=== PATIENT | male | born 1975 | race Caucasian/White ===

== ENCOUNTER 2020-11-07 15:23 | Emergency (ER) | payer OTHER ==
[~2020-11-07] VITALS: Ht 180.3 cm; Wt 121.3 kg
--- NOTE | 2020-11-07 15:54 | NUR ---
MADE SEVERAL ATTEMPTS TO TRIAGE PATIENT, IN BATHROOM THREE TIMES.
[2020-11-07 16:06] VITALS: BP 154/88
[2020-11-07 16:29] LABS: BASOPHILS # (AUTO) 0.1 X10'3 (0-0.2); BASOPHILS % (AUTO) 0.5 % (0-1); EOSINOPHILS % (AUTO) 0.1 % (0-6); HEMATOCRIT 44.4 % (42.0-52.0); LYMPHOCYTES # (AUTO) 2.4 X10'3 (1.1-4.8); LYMPHOCYTES % (AUTO) 14.1 % (21-51); MEAN CORPUSCULAR HGB CONC 33.8 g/dL (33.0-36.5); MEAN CORPUSCULAR VOLUME 91.6 FL (78-98); MEAN PLATELET VOLUME 8.2 FL (7.4-10.4); MONOCYTES # (AUTO) 0.5 X10'3 (0-0.9); MONOCYTES % (AUTO) 2.9 % (2-12); NEUTROPHILS # (AUTO) 13.9 X10'3 (1.8-7.7); NEUTROPHILS % (AUTO) 82.4 % (42-75); PLATELET COUNT 381 X10'3 (140-440); RED BLOOD COUNT 4.85 X10'6 (4.70-6.10); RED CELL DISTRIBUTION WIDTH 13.5 % (11.5-14.5); WHITE BLOOD COUNT 16.9 X10'3 (4.5-11.0)
[2020-11-07 16:44] LABS: ALANINE AMINOTRANSFERASE 40 U/L (12-78); ALBUMIN 3.8 G/DL (3.4-5.0); ALKALINE PHOSPHATASE 127 IU/L (46-116); ANION GAP 11 (8-16); ASPARTATE AMINO TRANSFERASE 21 U/L (10-37); BILIRUBIN,TOTAL 0.7 MG/DL (0.1-1.0); BLOOD UREA NITROGEN 6 MG/DL (7-18); BUN/CREATININE RATIO 8.3 (5.4-32.0); CHLORIDE 100 MMOL/L (99-107); CREATININE 0.72 MG/DL (0.60-1.10); GLUCOSE 365 MG/DL (70-104); POTASSIUM 3.6 MMOL/L (3.5-5.1); SODIUM 140 MMOL/L (135-145); TOTAL CARBON DIOXIDE 29.5 MMOL/L (24-32); TOTAL PROTEIN 7.8 G/DL (6.4-8.2); eGFR > 90 ML/MIN
== END 2020-11-07 17:21 | disposition left against medical advice (07) ==
LOC: ER 15:25
DX: R07.89 Other chest pain (principal); Z53.21 Procedure and treatment not carried out due to patient leaving prior to being seen by health care provider
CPT/HCPCS: 36415; 71045; 80053; 82948; 83880; 84484; 85025; 93005

== ENCOUNTER 2020-11-09 02:58 | Emergency (ER) | payer OTHER ==
[~2020-11-09] VITALS: Ht 180.3 cm; Wt 132.4 kg
[2020-11-09] MEDS ORDERED: ondansetron/PF 4mg/2ml inj IV ONE (03:20)
[2020-11-09] MEDS ORDERED: normal saline 1000ML IV soln IVB ONE ×2 (03:20→05:20)
[2020-11-09 05:08] LABS: ALANINE AMINOTRANSFERASE 51 U/L (12-78); ALBUMIN 3.9 G/DL (3.4-5.0); ALKALINE PHOSPHATASE 117 IU/L (46-116); ANION GAP 10 (8-16); ASPARTATE AMINO TRANSFERASE 60 U/L (10-37); BASOPHILS # (AUTO) 0.1 X10'3 (0-0.2); BASOPHILS % (AUTO) 0.3 % (0-1); BILIRUBIN,TOTAL 0.8 MG/DL (0.1-1.0); BLOOD UREA NITROGEN 9 MG/DL (7-18); BUN/CREATININE RATIO 10.5 (5.4-32.0); CHLORIDE 92 MMOL/L (99-107); CREATININE 0.86 MG/DL (0.60-1.10); EOSINOPHILS % (AUTO) 0.1 % (0-6); ETHANOL < 0.010 GM/DL (0.0-0.010); GLUCOSE 265 MG/DL (70-104); HEMATOCRIT 45.1 % (42.0-52.0); HEMOGLOBIN 15.4 g/dl (14.0-17.9); LIPASE 255 U/L (73-393); LYMPHOCYTES # (AUTO) 3.4 X10'3 (1.1-4.8); LYMPHOCYTES % (AUTO) 17.3 % (21-51); MAGNESIUM 1.8 MG/DL (1.5-2.4); MEAN CORPUSCULAR VOLUME 90.9 FL (78-98); MEAN PLATELET VOLUME 8.8 FL (7.4-10.4); MONOCYTES # (AUTO) 1.2 X10'3 (0-0.9); NEUTROPHILS # (AUTO) 14.8 X10'3 (1.8-7.7); NEUTROPHILS % (AUTO) 76.3 % (42-75); PLATELET COUNT 389 X10'3 (140-440); POTASSIUM 3.3 MMOL/L (3.5-5.1); RED BLOOD COUNT 4.96 X10'6 (4.70-6.10); RED CELL DISTRIBUTION WIDTH 13.6 % (11.5-14.5); SODIUM 135 MMOL/L (135-145); TOTAL CARBON DIOXIDE 32.8 MMOL/L (24-32); WHITE BLOOD COUNT 19.4 X10'3 (4.5-11.0); eGFR > 90 ML/MIN
--- NOTE | 2020-11-09 05:30 | NUR ---
pt to ct
[2020-11-09] MEDS ORDERED: ONDA4TAB6 PO (06:06)
[2020-11-09] MEDS ORDERED: potassium Cl 10 mEq/100mL bag IV ONE (06:25)
--- NOTE | 2020-11-09 06:35 | NUR ---
Discussed pt's continuing nausea w/ edmd valladares; new order for Reglan and NS bolus received. Currently tx and dc.
[2020-11-09] MEDS ORDERED: metoclopramide 5 mg/ml inj IV ONE (06:55)
[2020-11-09] MEDS ORDERED: normal saline 1000ml 1,000 ML IV ONE (06:55)
[2020-11-09 08:03] VITALS: BP 164/92
== END 2020-11-09 09:02 | disposition home or self-care (01) ==
LOC: ER 02:58
DX: R11.2 Nausea with vomiting, unspecified (principal); R10.9 Unspecified abdominal pain; E87.6 Hypokalemia; I10 Essential (primary) hypertension; Z20.822 Contact with and (suspected) exposure to COVID-19
CPT/HCPCS: 36415; 71045; 74176; 80053; 80320; 83690; 83735; 85025; 87502; 87503; 87635; 96361; 96374; 96375; 99285; C9803; J2405; J2765; J3480; J7030

== ENCOUNTER 2022-11-28 16:54 | Inpatient (IN) | payer OTHER, MEDICAID ==
[~2022-11-28] VITALS: Ht 182.9 cm; Wt 127.0 kg
[~2022-11-28 16:54] MED LIST: ONDA4TAB6 PO
[2022-11-28 17:56] LABS: BASOPHILS % (AUTO) 0.3 % (0-1); EOSINOPHILS % (AUTO) 0.1 % (0-6); HEMATOCRIT 45.3 % (42.0-52.0); HEMOGLOBIN 15.3 g/dl (14.0-17.9); LYMPHOCYTES # (AUTO) 1.7 X10'3 (1.1-4.8); LYMPHOCYTES % (AUTO) 9.6 % (21-51); MEAN CORPUSCULAR HGB CONC 33.7 g/dL (33.0-36.5); MEAN PLATELET VOLUME 8.1 FL (7.4-10.4); MONOCYTES # (AUTO) 0.7 X10'3 (0-0.9); MONOCYTES % (AUTO) 3.9 % (2-12); NEUTROPHILS # (AUTO) 15.6 X10'3 (1.8-7.7); NEUTROPHILS % (AUTO) 86.1 % (42-75); PLATELET COUNT 381 X10'3 (140-440); RED BLOOD COUNT 5.09 X10'6 (4.70-6.10); RED CELL DISTRIBUTION WIDTH 13.1 % (11.5-14.5); WHITE BLOOD COUNT 18.1 X10'3 (4.5-11.0)
[2022-11-28 18:03] LABS: ALBUMIN 4.1 G/DL (3.4-5.0); ALKALINE PHOSPHATASE 93 IU/L (46-116); ANION GAP 15 (8-16); ASPARTATE AMINO TRANSFERASE 34 U/L (10-37); BILIRUBIN,TOTAL 0.7 MG/DL (0.1-1.0); BLOOD UREA NITROGEN 8 MG/DL (7-18); BUN/CREATININE RATIO 6.2 (10.0-20.0); CALCIUM 9.5 MG/DL (8.5-10.1); CHLORIDE 94 MMOL/L (99-107); CREATININE 1.29 MG/DL (0.60-1.10); GLUCOSE 175 MG/DL (70-104); LIPASE < 50 U/L (73-393); POTASSIUM 3.6 MMOL/L (3.5-5.1); SODIUM 134 MMOL/L (135-145); TOTAL CARBON DIOXIDE 24.7 MMOL/L (24-32); TOTAL PROTEIN 8.4 G/DL (6.4-8.2); eGFR 59 ML/MIN
[2022-11-28 18:38] LABS: ALANINE AMINOTRANSFERASE 50 U/L (12-78)
[2022-11-28] MEDS ORDERED: ondansetron/PF 4mg/2ml inj IV ONE ×2 (19:20→21:20)
[2022-11-28] MEDS ORDERED: normal saline 1000ML IV soln IVB ONE (19:20)
[2022-11-28] MEDS ORDERED: morphine 4 MG/ML inj SYRINge IV ONE (19:20)
--- NOTE | 2022-11-28 19:48 | NUR ---
ASSUMED CARE OF PT FROM BONNIE CALVERT, PT C/O N/V, ABD PAIN. MEDICATED PER ORDER, PT TO CT IN WHEELCHAIR
--- NOTE | 2022-11-28 20:01 | NUR ---
RECEIVING 1ST LITER OF NS, ABD PAIN DECREASED TO 5/10
--- NOTE | 2022-11-28 20:47 | NUR ---
2ND LITER NS INFUSING W/O, PT IS RESTING QUIETLY ON BED, WAITING FOR REEVALUATION
[2022-11-28] MEDS ORDERED: temazepam 15mg capsule PO PRN (21:00)
--- NOTE | 2022-11-28 21:19 | NUR ---
PT IS VOMITING, DR KOO AWARE, GAVE VERBAL ORDER FOR ZOFRAN 4MG IV, 1 LITER NS BOLUS
[2022-11-28] MEDS ORDERED: normal saline 1000ml 1,000 ML IV ONE (21:20)
[2022-11-28 21:38] LABS: CLARITY,URINE CLEAR (Clear); COLOR,URINE YELLOW (Yellow); GLUCOSE, URINE NEGATIVE (Neg); KETONES,URINE 40 mg/dl (Neg); LEUKOCYTE ESTERASE ,URINE NEGATIVE (Neg); NITRITES, URINE NEGATIVE (Neg); OCCULT BLOOD,URINE NEGATIVE (Neg); PROTEIN,URINE 30 mg/dl (Neg); UROBILINOGEN,URINE 0.2 E.U/dL (0.2-1.0)
[2022-11-28 21:49] LABS: UA COLLECTION TYPE CLN CATCH MIDSTREAM
[2022-11-28 21:51] LABS: RBC,URINE NONE SEEN /HPF (0-2)
[2022-11-28 21:52] LABS: BACTERIA,URINE FEW /HPF (Neg); SQUAMOUS EPITHELIAL CELL,UR FEW /LPF (FEW)
[2022-11-28 21:53] LABS: MUCUS STRANDS FEW /LPF (Neg)
--- NOTE | 2022-11-28 22:05 | NUR ---
PT CONTINUES TO VOMIT, DR KOO AWARE, GAVE VERBAL ORDER FOR REGLAN 10MG IV NOW X1
[2022-11-28] MEDS ORDERED: metoclopramide 5 mg/ml inj IV ONE (22:10)
[2022-11-28] MEDS ORDERED: piperacillin/tazo 4.5gm/100ml 100 ML IV ONE (23:10)
[2022-11-28] MEDS ORDERED: ondansetron/PF 4mg/2ml inj IV PRN (23:20)
[2022-11-28] MEDS ORDERED: acetaminophen 325mg tablet PO PRN ×2 (23:20)
[2022-11-28] MEDS ORDERED: HYDROcodone/acetaminophen 5mg/325mg tablet PO PRN (23:20)
[2022-11-28] MEDS ORDERED: magnesium hydroxide 30ml (MOM) UD suspension PO PRN (23:20)
[2022-11-28] MEDS ORDERED: morphine 2 MG/ML inj. syringe IV PRN (23:20)
[2022-11-28] MEDS ORDERED: mag hydrox/Alum hydrox/simeth 30ml oral suspension PO PRN (23:20)
[2022-11-28] MEDS ORDERED: metroNIDAZOLE-Flagyl 500mg/NS 100 ML IV ONE (23:28)
[2022-11-28] MEDS ORDERED: GLIM4TAB7 PO (23:32)
[2022-11-28] MEDS ORDERED: GABA600T13 PO (23:32)
[2022-11-28] MEDS ORDERED: ALLO100T PO (23:33)
[2022-11-28] MEDS ORDERED: LOSA-416 PO (23:33)
--- NOTE | 2022-11-28 23:34 | NUR ---
MED REC PARTIALLY COMPLETE. TO BRING 2 OTHER UNK MEDS TOMORROW
--- NOTE | 2022-11-29 00:02 | NUR ---
PT USES CPAP AT NIGHT FOR SLEEP APNEA, DR KILGORE AWARE. GAVE VERBAL ORDER FOR CPAP.
[2022-11-29] MEDS: morphine 2 MG/ML inj. syringe IV PRN ×2 (00:59→20:11)
[2022-11-29] MEDS: dextrose 5%-1/2 normal saline 1,000 ML IV SCH ×2 (02:13→09:20)
[2022-11-29] MEDS ORDERED: glucagon, human recombinant 1mg kit SUBCUT PRN (04:40)
[2022-11-29] MEDS ORDERED: DEXTROSE 15 GM of carb/4 tabs (each vial/BOTTLE has 4 tablets) PO PRN ×2 (04:40)
[2022-11-29] MEDS ORDERED: MESSAGE TO PHARMACY PO ONE (04:40)
[2022-11-29] MEDS ORDERED: dextrose 50%-water 50ml dispensing syringe IV PRN ×2 (04:40)
[2022-11-29] MEDS ORDERED: insulin Lispro (HumaLOG) vial - multi-dose SQ SCH (04:40)
[2022-11-29] MEDS ORDERED: piperacillin/tazo 4.5gm/100ml 100 ML IV ONE (08:00)
[2022-11-29] MEDS: docusate sod 100mg capsule PO SCH ×2 (08:00→20:00)
[2022-11-29] MEDS ORDERED: metroNIDAZOLE-Flagyl 500mg/NS 100 ML IV SCH (08:00)
[2022-11-29] MEDS: allopurinol 100mg tablet PO SCH (08:26)
[2022-11-29] MEDS: gabapentin 300mg capsule PO SCH ×2 (08:28→15:17)
[2022-11-29] MEDS: losartan 50mg tablet PO SCH (08:28)
[2022-11-29] MEDS: piperacillin/tazo 4.5gm/100ml 100 ML IV SCH ×2 (08:50→15:18)
--- NOTE | 2022-11-29 09:20 | NUR ---
PT UP IN BED USING RESTROOM BY HIMESLF WITH IV POLE.
--- NOTE | 2022-11-29 10:59 | NUR ---
Patient in room ED 1. I have received report from yoly CALVERT and had the opportunity to ask questions and awaiting patients arrival
[2022-11-29 12:13] VITALS: BP 143/78
[2022-11-29 12:30] LABS: BASOPHILS # (AUTO) 0.1 X10'3 (0-0.2); BASOPHILS % (AUTO) 0.5 % (0-1); EOSINOPHILS # (AUTO) 0.1 X10'3 (0-0.9); EOSINOPHILS % (AUTO) 0.4 % (0-6); HEMATOCRIT 41.3 % (42.0-52.0); HEMOGLOBIN 13.6 g/dl (14.0-17.9); LYMPHOCYTES # (AUTO) 3.1 X10'3 (1.1-4.8); LYMPHOCYTES % (AUTO) 20.9 % (21-51); MEAN CORPUSCULAR HEMOGLOBIN 30.1 PG (27.0-31.0); MEAN CORPUSCULAR HGB CONC 33.1 g/dL (33.0-36.5); MEAN PLATELET VOLUME 7.5 FL (7.4-10.4); MONOCYTES % (AUTO) 6.5 % (2-12); NEUTROPHILS # (AUTO) 10.5 X10'3 (1.8-7.7); NEUTROPHILS % (AUTO) 71.7 % (42-75); PLATELET COUNT 274 X10'3 (140-440); RED BLOOD COUNT 4.53 X10'6 (4.70-6.10); RED CELL DISTRIBUTION WIDTH 13.2 % (11.5-14.5); WHITE BLOOD COUNT 14.6 X10'3 (4.5-11.0)
[2022-11-29 12:44] LABS: ALBUMIN 3.3 G/DL (3.4-5.0); ANION GAP 7 (8-16); BLOOD UREA NITROGEN 7 MG/DL (7-18); BUN/CREATININE RATIO 7.4 (10.0-20.0); CALCIUM 8.3 MG/DL (8.5-10.1); CHLORIDE 103 MMOL/L (99-107); CREATININE 0.94 MG/DL (0.60-1.10); GLUCOSE 125 MG/DL (70-104); POTASSIUM 3.1 MMOL/L (3.5-5.1); SODIUM 138 MMOL/L (135-145); TOTAL CARBON DIOXIDE 28.4 MMOL/L (24-32); eGFR 86 ML/MIN
--- NOTE | 2022-11-29 13:30 | NUR ---
patient appears comfortable in room. BSS. No c/o pain. No BM as yet seen by Dr kim
[2022-11-29] MEDS: Potassium Cl inj 20 MEQ in normal saline 1000ml 990 ML IV SCH ×2 (13:52→20:10)
[2022-11-29] MEDS: HALLS - SOOTHE MENTHOL 1.8 MG cough drop LOZENGE MM PRN (15:24)
--- NOTE | 2022-11-29 16:18 | NUR ---
Patient refuses our bipap. (He hasn't worn his home unit for months)
[2022-11-29] MEDS: HYDROcodone/acetaminophen 10/325mg tab PO PRN (16:43)
--- NOTE | 2022-11-29 17:58 | NUR ---
Cutler given for pain x1 with good rsult. patient up to shower.
[2022-11-29] MEDS ORDERED: potassium Cl 20 mEq SR tablet PO PRN ×2 (18:35)
[2022-11-29] MEDS ORDERED: magnesium Cl slow-release 64mg tablet PO PRN (18:35)
[2022-11-29] MEDS ORDERED: magnesium 4gm in 100ml NS 100 ML IV PRN (18:35)
[2022-11-29] MEDS ORDERED: magnesium 2GM in 50ml NS 50 ML IV PRN (18:35)
[2022-11-29] MEDS ORDERED: potassium Cl 40MEQ/1/2NS 520ml 520 ML IV PRN (18:35)
--- NOTE | 2022-11-29 18:39 | NUR ---
Problems reprioritized. Patient report given, questions answered & plan of care reviewed with Amy CALVERT.
--- NOTE | 2022-11-29 19:10 | NUR ---
PER REPORT FLUID WITH K STARTED THIS AM. WILL WAIT FOR K REDRAW TO START PROTOCOL.
[2022-11-29 19:32] VITALS: BP 154/89
[2022-11-29] MEDS ORDERED: K and/or MAG REPLACEMENT MC SCH (20:00)
[2022-11-29] MEDS ORDERED: GABA-534 PO (20:32)
[2022-11-29] MEDS ORDERED: DULO20CA50 PO (20:32)
[2022-11-29] MEDS ORDERED: QUET200T31 PO (20:32)
[2022-11-29] MEDS ORDERED: MIRT-116 PO (20:32)
--- NOTE | 2022-11-29 20:39 | NUR ---
pT. REPORTS NAUSEA, VOMITING, DIARRHEA SYMPTOMS. HOSPITALIST OK WITH FLU AND COVID SWABS. OK WITH NIGHT SEROQUEL DOSE- DAYSHIFT TO ADDRESS MED REQ.
[2022-11-29] MEDS ORDERED: potassium Cl 20mEq in NS 1,000 ML IV SCH (20:41)
[2022-11-29] MEDS ORDERED: quetiapine 100mg tablet PO SCH (21:00)
[2022-11-29] MEDS ORDERED: insulin glargine (Lantus) pen - multi-dose SQ SCH (21:00)
[2022-11-29 22:00] VITALS: BP 147/87
[2022-11-30] MEDS ORDERED: potassium Cl 20mEq in NS 1,000 ML IV SCH
--- NOTE | 2022-11-30 01:13 | NUR ---
Collected stool sample from Pt. Sent it down to Lab
[2022-11-30] MEDS: piperacillin/tazo 4.5gm/100ml 100 ML IV SCH ×2 (01:41→06:56)
[2022-11-30 06:00] VITALS: BP 163/91
--- NOTE | 2022-11-30 06:22 | NUR ---
Gave report to Xuan CALVERT
--- NOTE | 2022-11-30 06:34 | NUR ---
Patient in room ORTHO 4008. I have received report from ANKITA CALVERT and had the opportunity to ask questions and assume patient care.
[2022-11-30 06:45] LABS: C DIFF SPECIMEN=DIARRHEA? ACCEPTABLE; C DIFFICILE TOXINS A&B NEGATIVE (Neg)
[2022-11-30] MEDS: gabapentin 300mg capsule PO SCH ×2 (06:57)
[2022-11-30] MEDS: HYDROcodone/acetaminophen 10/325mg tab PO PRN (06:57)
[2022-11-30 06:58] VITALS: BP_SYST 163
[2022-11-30] MEDS: losartan 50mg tablet PO SCH (06:58)
[2022-11-30] MEDS: allopurinol 100mg tablet PO SCH (06:59)
[2022-11-30 07:03] LABS: BASOPHILS # (AUTO) 0.1 X10'3 (0-0.2); EOSINOPHILS # (AUTO) 0.2 X10'3 (0-0.9); EOSINOPHILS % (AUTO) 2.9 % (0-6); HEMATOCRIT 43.8 % (42.0-52.0); HEMOGLOBIN 14.7 g/dl (14.0-17.9); LYMPHOCYTES # (AUTO) 2.9 X10'3 (1.1-4.8); MEAN CORPUSCULAR HEMOGLOBIN 30.3 PG (27.0-31.0); MEAN CORPUSCULAR HGB CONC 33.7 g/dL (33.0-36.5); MEAN CORPUSCULAR VOLUME 90.1 FL (78-98); MEAN PLATELET VOLUME 7.8 FL (7.4-10.4); MONOCYTES # (AUTO) 0.8 X10'3 (0-0.9); MONOCYTES % (AUTO) 8.9 % (2-12); NEUTROPHILS # (AUTO) 4.5 X10'3 (1.8-7.7); NEUTROPHILS % (AUTO) 53.2 % (42-75); PLATELET COUNT 233 X10'3 (140-440); RED BLOOD COUNT 4.86 X10'6 (4.70-6.10); RED CELL DISTRIBUTION WIDTH 13.5 % (11.5-14.5); WHITE BLOOD COUNT 8.5 X10'3 (4.5-11.0)
[2022-11-30 07:05] LABS: ALBUMIN 3.3 G/DL (3.4-5.0); ANION GAP 7 (8-16); BLOOD UREA NITROGEN 6 MG/DL (7-18); CALCIUM 8.5 MG/DL (8.5-10.1); CHLORIDE 104 MMOL/L (99-107); CREATININE 0.86 MG/DL (0.60-1.10); GLUCOSE 106 MG/DL (70-104); POTASSIUM 3.8 MMOL/L (3.5-5.1); SODIUM 142 MMOL/L (135-145); TOTAL CARBON DIOXIDE 30.6 MMOL/L (24-32); eGFR > 90 ML/MIN
[2022-11-30] MEDS: docusate sod 100mg capsule PO SCH (08:00)
[2022-11-30] MEDS ORDERED: AMOX-580 PO (08:52)
[2022-11-30] MEDS ORDERED: ONDA4TAB12 PO (08:52)
[2022-11-30] MEDS: HALLS - SOOTHE MENTHOL 1.8 MG cough drop LOZENGE MM PRN (09:39)
--- NOTE | 2022-11-30 11:05 | NUR ---
PATIENT had negative result on stool specimen. seen by Dr Fong. is for DC. All DC instructions given to patient. patient DC home via private car with son in stable condition .
[2022-12-01] MEDS ORDERED: DICY10CA88 PO (13:53)
[2022-12-01] MEDS ORDERED: ONDA4TAB12 PO (13:53)
[2022-12-03 06:17] LABS: HBSAG SCREEN Negative (Negative); HEP B CORE AB, TOT Negative (Negative)
== END 2022-11-30 11:12 | disposition home or self-care (01) | DRG 871 ==
LOC: ER 16:55 → ED HOLD 23:25 → ORTHO 4S 11-29 11:20
PROVIDERS: ADMIT Internal Medicine; ATTEND Family Medicine
PROC: 5A09357 Assistance with Respiratory Ventilation, Less than 24 Consecutive Hours, Continuous Positive Airway Pressure (ICD-10-PCS; principal; 2022-11-29)
DX: A41.9 Sepsis, unspecified organism (principal); N17.0 Acute kidney failure with tubular necrosis; A09 Infectious gastroenteritis and colitis, unspecified; E11.9 Type 2 diabetes mellitus without complications; Z20.822 Contact with and (suspected) exposure to COVID-19; E66.01 Morbid (severe) obesity due to excess calories; E86.0 Dehydration; G47.33 Obstructive sleep apnea (adult) (pediatric); I10 Essential (primary) hypertension; Z79.84 Long term (current) use of oral hypoglycemic drugs; Z83.3 Family history of diabetes mellitus; Z79.899 Other long term (current) drug therapy; Z68.38 Body mass index [BMI] 38.0-38.9, adult
CPT/HCPCS: 36415; 74176; 80048; 80053; 81001; 82948; 83036; 83605; 83690; 84145; 85025; 86704; 86705; 86706; 87040; 87081; 87088; 87324; 87340; 87449; 87502; 87503; 87811; 94660; 94760; 99285; A4615; G0378; J1815; J2270; J2405; J2543; J2765; J3480; J3490; J7030

== ENCOUNTER 2022-12-01 09:14 | Emergency (ER) | payer OTHER, MEDICAID ==
[~2022-12-01] VITALS: Ht 182.9 cm; Wt 114.0 kg
[~2022-12-01 09:14] MED LIST changes: +ALLO100T PO; +AMOX-580 PO; +DULO20CA50 PO; +GABA-534 PO; +GABA600T13 PO; +GLIM4TAB7 PO; +LOSA-416 PO; +MIRT-116 PO; +ONDA4TAB12 PO; -ONDA4TAB6 PO; +QUET200T31 PO
[2022-12-01 11:30] LABS: CLARITY,URINE SLIGHTLY CLOUDY (Clear); COLOR,URINE YELLOW (Yellow); GLUCOSE, URINE NEGATIVE (Neg); KETONES,URINE >=80 mg/dl (Neg); LEUKOCYTE ESTERASE ,URINE NEGATIVE (Neg); NITRITES, URINE NEGATIVE (Neg); OCCULT BLOOD,URINE NEGATIVE (Neg); PROTEIN,URINE 30 mg/dl (Neg); UROBILINOGEN,URINE 0.2 E.U/dL (0.2-1.0)
[2022-12-01 11:36] LABS: UA COLLECTION TYPE CLN CATCH MIDSTREAM
[2022-12-01 11:37] LABS: BACTERIA,URINE FEW /HPF (Neg); RBC,URINE 0-2 /HPF (0-2); SQUAMOUS EPITHELIAL CELL,UR FEW /LPF (FEW); WBC,URINE 0-4 /HPF (0-4)
[2022-12-01 11:38] LABS: MUCUS STRANDS FEW /LPF (Neg)
[2022-12-01] MEDS ORDERED: diphenhydrAMINE 50 mg/ml inj IV ONE (11:55)
[2022-12-01] MEDS ORDERED: metoclopramide 5 mg/ml inj IV ONE (11:55)
[2022-12-01] MEDS ORDERED: normal saline 1000ML IV soln IVB ONE ×2 (11:55→12:40)
[2022-12-01] MEDS ORDERED: glycopyrrolate 0.2mg/ml inj IV ONE (12:40)
[2022-12-01] MEDS ORDERED: ondansetron/PF 4mg/2ml inj IV ONE (12:40)
[2022-12-01 12:41] LABS: ALANINE AMINOTRANSFERASE 48 U/L (12-78); ALBUMIN 3.9 G/DL (3.4-5.0); ALBUMIN/GLOBULIN RATIO 0.9 (1.1-1.5); ALKALINE PHOSPHATASE 73 IU/L (46-116); ANION GAP 10 (8-16); ASPARTATE AMINO TRANSFERASE 45 U/L (10-37); BILIRUBIN,TOTAL 0.6 MG/DL (0.1-1.0); BLOOD UREA NITROGEN 6 MG/DL (7-18); BUN/CREATININE RATIO 6.8 (10.0-20.0); CALCIUM 9.3 MG/DL (8.5-10.1); CHLORIDE 97 MMOL/L (99-107); CREATININE 0.88 MG/DL (0.60-1.10); GLUCOSE 112 MG/DL (70-104); LIPASE 88 U/L (73-393); POTASSIUM 3.6 MMOL/L (3.5-5.1); SODIUM 140 MMOL/L (135-145); TOTAL CARBON DIOXIDE 33.3 MMOL/L (24-32); TOTAL PROTEIN 8.2 G/DL (6.4-8.2); eGFR > 90 ML/MIN
[2022-12-01 12:51] LABS: BASOPHILS # (AUTO) 0.1 X10'3 (0-0.2); BASOPHILS % (AUTO) 0.6 % (0-1); EOSINOPHILS # (AUTO) 0.1 X10'3 (0-0.9); EOSINOPHILS % (AUTO) 0.5 % (0-6); HEMATOCRIT 49.1 % (42.0-52.0); HEMOGLOBIN 16.8 g/dl (14.0-17.9); LYMPHOCYTES # (AUTO) 2.2 X10'3 (1.1-4.8); LYMPHOCYTES % (AUTO) 21.8 % (21-51); MEAN CORPUSCULAR HEMOGLOBIN 30.4 PG (27.0-31.0); MEAN CORPUSCULAR HGB CONC 34.1 g/dL (33.0-36.5); MEAN CORPUSCULAR VOLUME 89.1 FL (78-98); MEAN PLATELET VOLUME 7.9 FL (7.4-10.4); MONOCYTES # (AUTO) 0.6 X10'3 (0-0.9); MONOCYTES % (AUTO) 5.8 % (2-12); NEUTROPHILS # (AUTO) 7.3 X10'3 (1.8-7.7); NEUTROPHILS % (AUTO) 71.3 % (42-75); PLATELET COUNT 363 X10'3 (140-440); RED BLOOD COUNT 5.51 X10'6 (4.70-6.10); RED CELL DISTRIBUTION WIDTH 13.2 % (11.5-14.5); WHITE BLOOD COUNT 10.3 X10'3 (4.5-11.0)
[2022-12-01] MEDS ORDERED: ONDA4TAB12 PO (13:53)
[2022-12-01] MEDS ORDERED: DICY10CA88 PO (13:53)
[2022-12-01 14:01] VITALS: BP 165/112
== END 2022-12-01 16:40 | disposition home or self-care (01) ==
LOC: ER 09:15
DX: K52.9 Noninfective gastroenteritis and colitis, unspecified (principal); I10 Essential (primary) hypertension; E11.9 Type 2 diabetes mellitus without complications; Z79.899 Other long term (current) drug therapy
CPT/HCPCS: 36415; 80053; 81001; 83690; 84145; 85025; 96374; 96375; 99284; J1200; J2405; J2765; J3490; J7030

== ENCOUNTER 2022-12-17 09:31 | Emergency (ER) | payer OTHER, MEDICAID ==
[~2022-12-17] VITALS: Ht 182.9 cm; Wt 114.8 kg
[~2022-12-17 09:31] MED LIST changes: +DICY10CA88 PO
[2022-12-17 09:50] LABS: CLARITY,URINE SLIGHTLY CLOUDY (Clear); COLOR,URINE YELLOW (Yellow); GLUCOSE, URINE NEGATIVE (Neg); KETONES,URINE NEGATIVE (Neg); LEUKOCYTE ESTERASE ,URINE NEGATIVE (Neg); NITRITES, URINE NEGATIVE (Neg); OCCULT BLOOD,URINE NEGATIVE (Neg); PROTEIN,URINE 100 mg/dl (Neg)
[2022-12-17 09:52] LABS: UA COLLECTION TYPE CLN CATCH MIDSTREAM
[2022-12-17 10:03] LABS: BASOPHILS # (AUTO) 0.1 X10'3 (0-0.2); BASOPHILS % (AUTO) 0.7 % (0-1); EOSINOPHILS # (AUTO) 0.2 X10'3 (0-0.9); EOSINOPHILS % (AUTO) 3.2 % (0-6); HEMATOCRIT 46.1 % (42.0-52.0); HEMOGLOBIN 15.4 g/dl (14.0-17.9); LYMPHOCYTES # (AUTO) 1.9 X10'3 (1.1-4.8); LYMPHOCYTES % (AUTO) 24.2 % (21-51); MEAN CORPUSCULAR HGB CONC 33.5 g/dL (33.0-36.5); MEAN CORPUSCULAR VOLUME 89.5 FL (78-98); MEAN PLATELET VOLUME 8.3 FL (7.4-10.4); MONOCYTES # (AUTO) 0.6 X10'3 (0-0.9); MONOCYTES % (AUTO) 7.5 % (2-12); NEUTROPHILS # (AUTO) 5.1 X10'3 (1.8-7.7); NEUTROPHILS % (AUTO) 64.4 % (42-75); PLATELET COUNT 396 X10'3 (140-440); RED BLOOD COUNT 5.15 X10'6 (4.70-6.10); RED CELL DISTRIBUTION WIDTH 13.3 % (11.5-14.5); WHITE BLOOD COUNT 7.9 X10'3 (4.5-11.0)
[2022-12-17 10:04] LABS: BACTERIA,URINE FEW /HPF (Neg); HYALINE CASTS 0-3 /LPF (NEGATIVE); MUCUS STRANDS MANY /LPF (Neg); RBC,URINE 0-2 /HPF (0-2); SQUAMOUS EPITHELIAL CELL,UR MODERATE /LPF (FEW); TRANSITIONAL EPI CELLS,URINE FEW /HPF
[2022-12-17 10:10] LABS: ALANINE AMINOTRANSFERASE 28 U/L (12-78); ALBUMIN 3.6 G/DL (3.4-5.0); ALBUMIN/GLOBULIN RATIO 0.9 (1.1-1.5); ALKALINE PHOSPHATASE 101 IU/L (46-116); ANION GAP 9 (8-16); ASPARTATE AMINO TRANSFERASE 22 U/L (10-37); BILIRUBIN,TOTAL 0.6 MG/DL (0.1-1.0); BLOOD UREA NITROGEN 5 MG/DL (7-18); BUN/CREATININE RATIO 5.6 (10.0-20.0); CALCIUM 9.2 MG/DL (8.5-10.1); CHLORIDE 99 MMOL/L (99-107); GLUCOSE 174 MG/DL (70-104); LIPASE 729 U/L (73-393); POTASSIUM 3.9 MMOL/L (3.5-5.1); SODIUM 140 MMOL/L (135-145); TOTAL CARBON DIOXIDE 31.7 MMOL/L (24-32); TOTAL PROTEIN 7.6 G/DL (6.4-8.2); eGFR 90 ML/MIN
[2022-12-17] MEDS ORDERED: morphine 4 MG/ML inj SYRINge IV PRN (10:20)
[2022-12-17] MEDS ORDERED: ondansetron/PF 4mg/2ml inj IV ONE (10:20)
[2022-12-17] MEDS ORDERED: normal saline 1000ml 1,000 ML IV ONE (10:20)
[2022-12-17] MEDS ORDERED: METR-159 PO (12:40)
[2022-12-17] MEDS ORDERED: HYDR-3965 PO (12:40)
[2022-12-17] MEDS ORDERED: LEVO-65 PO (12:40)
[2022-12-17 13:15] VITALS: BP 157/99
== END 2022-12-17 13:20 | disposition home or self-care (01) ==
LOC: ER 09:31
DX: K57.92 Diverticulitis of intestine, part unspecified, without perforation or abscess without bleeding (principal); I10 Essential (primary) hypertension; E11.9 Type 2 diabetes mellitus without complications; Z79.899 Other long term (current) drug therapy; Z79.1 Long term (current) use of non-steroidal anti-inflammatories (NSAID); Z79.2 Long term (current) use of antibiotics
CPT/HCPCS: 36415; 74176; 80053; 81001; 83690; 85025; 87088; 96374; 96375; 99285; J2270; J2405; J7030; A4615

== ENCOUNTER 2022-12-23 09:14 | Emergency (ER) | payer OTHER, MEDICAID ==
[~2022-12-23] VITALS: Ht 182.9 cm; Wt 113.6 kg
[~2022-12-23 09:14] MED LIST changes: +HYDR-3965 PO; +LEVO-65 PO; +METR-159 PO
[2022-12-23] MEDS ORDERED: acetaminophen 325mg tablet PO STA (09:44)
[2022-12-23] MEDS ORDERED: normal saline 1000ML IV soln IV ONE (09:45)
[2022-12-23] MEDS ORDERED: ondansetron/PF 4mg/2ml inj IV ONE (09:45)
[2022-12-23] MEDS ORDERED: famotidine/PF 10 mg/ml inj IV ONE (09:45)
[2022-12-23 09:48] LABS: BASOPHILS # (AUTO) 0.1 X10'3 (0-0.2); BASOPHILS % (AUTO) 0.6 % (0-1); EOSINOPHILS # (AUTO) 0.3 X10'3 (0-0.9); EOSINOPHILS % (AUTO) 2.7 % (0-6); HEMATOCRIT 46.1 % (42.0-52.0); HEMOGLOBIN 15.5 g/dl (14.0-17.9); LYMPHOCYTES # (AUTO) 1.9 X10'3 (1.1-4.8); LYMPHOCYTES % (AUTO) 19.6 % (21-51); MEAN CORPUSCULAR HEMOGLOBIN 30.2 PG (27.0-31.0); MEAN CORPUSCULAR HGB CONC 33.6 g/dL (33.0-36.5); MEAN CORPUSCULAR VOLUME 90.1 FL (78-98); MEAN PLATELET VOLUME 8.2 FL (7.4-10.4); MONOCYTES # (AUTO) 0.6 X10'3 (0-0.9); MONOCYTES % (AUTO) 6.6 % (2-12); NEUTROPHILS # (AUTO) 6.8 X10'3 (1.8-7.7); NEUTROPHILS % (AUTO) 70.5 % (42-75); PLATELET COUNT 377 X10'3 (140-440); RED BLOOD COUNT 5.11 X10'6 (4.70-6.10); RED CELL DISTRIBUTION WIDTH 13.1 % (11.5-14.5); WHITE BLOOD COUNT 9.6 X10'3 (4.5-11.0)
[2022-12-23 10:16] LABS: ALANINE AMINOTRANSFERASE 41 U/L (12-78); ALBUMIN 3.5 G/DL (3.4-5.0); ALBUMIN/GLOBULIN RATIO 0.9 (1.1-1.5); ALKALINE PHOSPHATASE 84 IU/L (46-116); ANION GAP 7 (8-16); ASPARTATE AMINO TRANSFERASE 35 U/L (10-37); BILIRUBIN,TOTAL 0.5 MG/DL (0.1-1.0); BLOOD UREA NITROGEN 3 MG/DL (7-18); CALCIUM 8.9 MG/DL (8.5-10.1); CHLORIDE 101 MMOL/L (99-107); GLUCOSE 149 MG/DL (70-104); LIPASE 84 U/L (73-393); POTASSIUM 4.1 MMOL/L (3.5-5.1); SODIUM 138 MMOL/L (135-145); TOTAL CARBON DIOXIDE 29.7 MMOL/L (24-32); TOTAL PROTEIN 7.5 G/DL (6.4-8.2); eGFR 87 ML/MIN
[2022-12-23 10:17] LABS: CREATININE 0.93 MG/DL (0.60-1.10)
[2022-12-23 10:18] LABS: BUN/CREATININE RATIO 3.2 (10.0-20.0)
[2022-12-23 10:22] LABS: CLARITY,URINE CLEAR (Clear); COLOR,URINE YELLOW (Yellow); GLUCOSE, URINE NEGATIVE (Neg); KETONES,URINE TRACE mg/dl (Neg); LEUKOCYTE ESTERASE ,URINE NEGATIVE (Neg); NITRITES, URINE NEGATIVE (Neg); OCCULT BLOOD,URINE NEGATIVE (Neg); PROTEIN,URINE TRACE mg/dl (Neg); UROBILINOGEN,URINE 0.2 E.U/dL (0.2-1.0)
[2022-12-23 10:27] LABS: UA COLLECTION TYPE CLN CATCH MIDSTREAM
[2022-12-23 10:29] LABS: RBC,URINE NONE SEEN /HPF (0-2)
[2022-12-23 10:30] LABS: BACTERIA,URINE FEW /HPF (Neg); MUCUS STRANDS MANY /LPF (Neg); SQUAMOUS EPITHELIAL CELL,UR MODERATE /LPF (FEW)
--- NOTE | 2022-12-23 10:58 | NUR ---
per provider, change fluid order to two liter NS total. second liter started. pt tolerating well.
--- NOTE | 2022-12-23 10:59 | NUR ---
provider at bedside.
[2022-12-23] MEDS ORDERED: OXYC-145 PO (11:04)
[2022-12-23] MEDS ORDERED: PRED10TA23 PO (11:04)
[2022-12-23] MEDS ORDERED: LEVO-65 PO (11:04)
[2022-12-23] MEDS ORDERED: methylPREDNISolone sod succ 125mg/2ml vial IV ONE (11:05)
[2022-12-23 11:34] VITALS: BP 137/88
== END 2022-12-23 11:36 | disposition home or self-care (01) ==
LOC: ER 09:15
DX: K57.92 Diverticulitis of intestine, part unspecified, without perforation or abscess without bleeding (principal); I10 Essential (primary) hypertension; E11.9 Type 2 diabetes mellitus without complications
CPT/HCPCS: 36415; 80053; 81001; 83605; 83690; 84145; 85025; 87040; 87088; 96361; 96374; 96375; 99284; J2405; J2930; J3490; J7030

== ENCOUNTER 2023-01-08 23:14 | Emergency (ER) | payer OTHER, MEDICAID ==
[~2023-01-08] VITALS: Ht 182.9 cm; Wt 113.6 kg
[~2023-01-08 23:14] MED LIST changes: -DICY10CA88 PO; -GABA-534 PO; +GABA-535 PO; -LEVO-65 PO; -METR-159 PO; +OXYC-145 PO; +PRED10TA23 PO
[2023-01-08 23:50] VITALS: BP 124/80; PULSE 99; RESP 16; TEMP 98.9; O2SAT 97
[2023-01-09 02:18] LABS: BASOPHILS # (AUTO) 0.1 X10'3 (0-0.2); BASOPHILS % (AUTO) 0.5 % (0-1); EOSINOPHILS # (AUTO) 0.2 X10'3 (0-0.9); EOSINOPHILS % (AUTO) 1.6 % (0-6); HEMATOCRIT 44.2 % (42.0-52.0); HEMOGLOBIN 14.8 g/dl (14.0-17.9); LYMPHOCYTES # (AUTO) 2.3 X10'3 (1.1-4.8); LYMPHOCYTES % (AUTO) 17.8 % (21-51); MEAN CORPUSCULAR HGB CONC 33.5 g/dL (33.0-36.5); MEAN CORPUSCULAR VOLUME 89.6 FL (78-98); MEAN PLATELET VOLUME 8.4 FL (7.4-10.4); MONOCYTES # (AUTO) 0.8 X10'3 (0-0.9); NEUTROPHILS # (AUTO) 9.7 X10'3 (1.8-7.7); NEUTROPHILS % (AUTO) 74.1 % (42-75); PLATELET COUNT 316 X10'3 (140-440); RED BLOOD COUNT 4.93 X10'6 (4.70-6.10); RED CELL DISTRIBUTION WIDTH 13.5 % (11.5-14.5); WHITE BLOOD COUNT 13.1 X10'3 (4.5-11.0)
[2023-01-09] MEDS ORDERED: ondansetron 4mg rapidly disintigrating tab PO ONE (02:25)
[2023-01-09] MEDS ORDERED: mag hydrox/Alum hydrox/simeth 30ml oral suspension PO ONE (02:25)
[2023-01-09] MEDS ORDERED: pantoprazole 40mg Tablet.DR PO ONE (02:25)
[2023-01-09] MEDS ORDERED: LIDOcaine Viscous 15ml cup MM ONE (02:25)
[2023-01-09] MEDS ORDERED: famotidine 20mg tablet PO ONE (02:25)
[2023-01-09 02:32] LABS: ALANINE AMINOTRANSFERASE 29 U/L (12-78); ALBUMIN 3.5 G/DL (3.4-5.0); ALBUMIN/GLOBULIN RATIO 0.9 (1.1-1.5); ALKALINE PHOSPHATASE 81 IU/L (46-116); ANION GAP 12 (8-16); ASPARTATE AMINO TRANSFERASE 22 U/L (10-37); BILIRUBIN,TOTAL 0.4 MG/DL (0.1-1.0); BLOOD UREA NITROGEN 9 MG/DL (7-18); CALCIUM 9.2 MG/DL (8.5-10.1); CHLORIDE 99 MMOL/L (99-107); CREATININE 0.82 MG/DL (0.60-1.10); GLUCOSE 210 MG/DL (70-104); LIPASE 587 U/L (73-393); POTASSIUM 3.9 MMOL/L (3.5-5.1); SODIUM 137 MMOL/L (135-145); TOTAL CARBON DIOXIDE 26.5 MMOL/L (24-32); TOTAL PROTEIN 7.5 G/DL (6.4-8.2); eCRCL 121 ML/MIN; eGFR > 90 ML/MIN
[2023-01-09] MEDS ORDERED: dicyclomine 10mg/ml 2ml ampule IM ONE (03:05)
[2023-01-09] MEDS ORDERED: HYDROcodone/acetaminophen 10/325mg tab PO ONE (03:05)
[2023-01-09] MEDS ORDERED: LORazepam 2 mg/ml vial IM ONE (03:55)
[2023-01-09 04:42] LABS: BILIRUBIN,URINE NEGATIVE (Neg); CLARITY,URINE CLEAR (Clear); COLOR,URINE YELLOW (Yellow); GLUCOSE, URINE NEGATIVE (Neg); KETONES,URINE NEGATIVE (Neg); LEUKOCYTE ESTERASE ,URINE NEGATIVE (Neg); NITRITES, URINE NEGATIVE (Neg); OCCULT BLOOD,URINE NEGATIVE (Neg); PROTEIN,URINE NEGATIVE (Neg); UROBILINOGEN,URINE 0.2 E.U/dL (0.2-1.0)
[2023-01-09 04:53] LABS: UA COLLECTION TYPE VOIDED
[2023-01-09] MEDS ORDERED: ONDA8TAB13 PO (05:09)
[2023-01-09] MEDS ORDERED: DICY10CA88 PO (05:09)
[2023-01-09] MEDS ORDERED: PANT-47 PO (05:09)
== END 2023-01-09 05:44 | disposition home or self-care (01) ==
LOC: ER 23:15
DX: R10.84 Generalized abdominal pain (principal); R11.2 Nausea with vomiting, unspecified; Z79.2 Long term (current) use of antibiotics; Z79.899 Other long term (current) drug therapy
CPT/HCPCS: 36415; 74176; 80053; 81003; 83690; 85025; 96372; 99285; J0500; J2060

== ENCOUNTER 2023-01-10 16:16 | Emergency (ER) | payer OTHER, MEDICAID ==
[~2023-01-10] VITALS: Ht 182.9 cm; Wt 113.0 kg
[~2023-01-10 16:16] MED LIST changes: +DICY10CA88 PO; +ONDA8TAB13 PO; +PANT-47 PO
[2023-01-10 17:01] LABS: BASOPHILS # (AUTO) 0.1 X10'3 (0-0.2); BASOPHILS % (AUTO) 0.6 % (0-1); EOSINOPHILS # (AUTO) 0.1 X10'3 (0-0.9); EOSINOPHILS % (AUTO) 0.8 % (0-6); HEMOGLOBIN 15.8 g/dl (14.0-17.9); LYMPHOCYTES # (AUTO) 2.4 X10'3 (1.1-4.8); MEAN CORPUSCULAR HEMOGLOBIN 29.7 PG (27.0-31.0); MEAN CORPUSCULAR HGB CONC 32.8 g/dL (33.0-36.5); MEAN CORPUSCULAR VOLUME 90.5 FL (78-98); MEAN PLATELET VOLUME 8.2 FL (7.4-10.4); MONOCYTES # (AUTO) 0.9 X10'3 (0-0.9); MONOCYTES % (AUTO) 7.5 % (2-12); NEUTROPHILS # (AUTO) 8.4 X10'3 (1.8-7.7); NEUTROPHILS % (AUTO) 71.1 % (42-75); PLATELET COUNT 427 X10'3 (140-440); RED BLOOD COUNT 5.31 X10'6 (4.70-6.10); RED CELL DISTRIBUTION WIDTH 13.7 % (11.5-14.5); WHITE BLOOD COUNT 11.8 X10'3 (4.5-11.0)
[2023-01-10 17:17] LABS: ALANINE AMINOTRANSFERASE 30 U/L (12-78); ALBUMIN/GLOBULIN RATIO 0.9 (1.1-1.5); ALKALINE PHOSPHATASE 93 IU/L (46-116); ANION GAP 11 (8-16); ASPARTATE AMINO TRANSFERASE 29 U/L (10-37); BILIRUBIN,TOTAL 0.7 MG/DL (0.1-1.0); BLOOD UREA NITROGEN 8 MG/DL (7-18); CALCIUM 9.6 MG/DL (8.5-10.1); CHLORIDE 98 MMOL/L (99-107); GLUCOSE 151 MG/DL (70-104); LIPASE 100 U/L (73-393); POTASSIUM 4.1 MMOL/L (3.5-5.1); SODIUM 138 MMOL/L (135-145); TOTAL PROTEIN 8.4 G/DL (6.4-8.2); eCRCL 99 ML/MIN; eGFR 80 ML/MIN
[2023-01-10] MEDS ORDERED: haloperidol lactate 5mg/ml inj IM ONE ×2 (18:00→18:35)
[2023-01-10] MEDS ORDERED: ondansetron/PF 4mg/2ml inj IV ONE ×2 (18:00→20:20)
[2023-01-10] MEDS ORDERED: diphenhydrAMINE 50 mg/ml inj IV ONE (18:00)
[2023-01-10] MEDS ORDERED: LORazepam 2 mg/ml vial IV ONE ×2 (18:35→20:20)
[2023-01-10 19:37] LABS: BILIRUBIN,URINE NEGATIVE (Neg); CLARITY,URINE SLIGHTLY CLOUDY (Clear); COLOR,URINE YELLOW (Yellow); GLUCOSE, URINE NEGATIVE (Neg); KETONES,URINE 15 mg/dl (Neg); LEUKOCYTE ESTERASE ,URINE NEGATIVE (Neg); NITRITES, URINE NEGATIVE (Neg); OCCULT BLOOD,URINE NEGATIVE (Neg); PH,URINE >=9.0 (4.8-8.0); PROTEIN,URINE 100 mg/dl (Neg)
[2023-01-10] MEDS ORDERED: proCHLORperazine 10 MG/2 ml inj IV ONE (19:40)
[2023-01-10 20:02] LABS: UA COLLECTION TYPE CLN CATCH MIDSTREAM
[2023-01-10 20:09] LABS: BACTERIA,URINE FEW /HPF (Neg); SQUAMOUS EPITHELIAL CELL,UR MODERATE /LPF (FEW)
[2023-01-10 20:10] LABS: MUCUS STRANDS FEW /LPF (Neg)
[2023-01-10] MEDS ORDERED: haloperidol lactate 5mg/ml inj IVH ONE (20:20)
[2023-01-10] MEDS ORDERED: normal saline 1000ML IV soln IVB ONE (20:20)
[2023-01-10] MEDS ORDERED: ketorolac tromethamine 15mg/ml inj. IV ONE (20:20)
[2023-01-10 21:06] VITALS: BP 142/81; PULSE 106; RESP 18; O2SAT 90
--- NOTE | 2023-01-10 22:13 | NUR ---
Patient has not vomited in over an hour after last medication administration. Pt is alert and oriented, but sleepy.
[2023-01-10 22:14] VITALS: TEMP 99.1
== END 2023-01-10 22:20 | disposition home or self-care (01) ==
LOC: ER 16:17
DX: R11.15 Cyclical vomiting syndrome unrelated to migraine (principal); I10 Essential (primary) hypertension; F12.90 Cannabis use, unspecified, uncomplicated; Z79.899 Other long term (current) drug therapy; Z79.2 Long term (current) use of antibiotics
CPT/HCPCS: 36415; 80053; 81001; 83690; 85025; 87088; 96372; 96374; 96375; 96376; 99284; J0780; J1200; J1630; J1885; J2060; J2405; J7030

== ENCOUNTER 2023-01-13 08:31 | Emergency (ER) | payer OTHER, MEDICAID ==
[~2023-01-13] VITALS: Ht 182.9 cm; Wt 113.0 kg
[2023-01-13 08:37] VITALS: TEMP 98.6
[2023-01-13] MEDS ORDERED: metoclopramide 10mg tablet PO ONE (08:50)
[2023-01-13] MEDS ORDERED: traZODone 50mg tablet PO ONE (08:50)
[2023-01-13] MEDS ORDERED: traZODone 50mg tablet PO SCH (08:50)
[2023-01-13 09:06] VITALS: BP 164/97; PULSE 82; RESP 20; O2SAT 96
[2023-01-14] MEDS ORDERED: PROC-8 PO (00:08)
== END 2023-01-13 09:08 | disposition home or self-care (01) ==
LOC: ER 08:31
DX: F12.10 Cannabis abuse, uncomplicated (principal); I10 Essential (primary) hypertension; E11.9 Type 2 diabetes mellitus without complications; Z79.899 Other long term (current) drug therapy; Z79.1 Long term (current) use of non-steroidal anti-inflammatories (NSAID); Z79.2 Long term (current) use of antibiotics
CPT/HCPCS: 93005; 99283

== ENCOUNTER 2023-01-13 22:21 | Emergency (ER) | payer OTHER, MEDICAID ==
[~2023-01-13] VITALS: Ht 182.9 cm; Wt 113.6 kg
[2023-01-13 23:08] LABS: BASOPHILS % (AUTO) 0.2 % (0-1); EOSINOPHILS % (AUTO) 0.3 % (0-6); HEMATOCRIT 46.1 % (42.0-52.0); LYMPHOCYTES # (AUTO) 2.7 X10'3 (1.1-4.8); LYMPHOCYTES % (AUTO) 16.2 % (21-51); MEAN CORPUSCULAR HEMOGLOBIN 30.4 PG (27.0-31.0); MEAN CORPUSCULAR HGB CONC 34.6 g/dL (33.0-36.5); MEAN CORPUSCULAR VOLUME 87.7 FL (78-98); MEAN PLATELET VOLUME 8.2 FL (7.4-10.4); MONOCYTES # (AUTO) 1.3 X10'3 (0-0.9); MONOCYTES % (AUTO) 7.6 % (2-12); NEUTROPHILS # (AUTO) 12.5 X10'3 (1.8-7.7); NEUTROPHILS % (AUTO) 75.7 % (42-75); PLATELET COUNT 440 X10'3 (140-440); RED BLOOD COUNT 5.26 X10'6 (4.70-6.10); RED CELL DISTRIBUTION WIDTH 13.3 % (11.5-14.5); WHITE BLOOD COUNT 16.5 X10'3 (4.5-11.0)
[2023-01-13 23:20] LABS: ALANINE AMINOTRANSFERASE 33 U/L (12-78); ALBUMIN 3.8 G/DL (3.4-5.0); ALBUMIN/GLOBULIN RATIO 0.9 (1.1-1.5); ALKALINE PHOSPHATASE 84 IU/L (46-116); ANION GAP 11 (8-16); ASPARTATE AMINO TRANSFERASE 36 U/L (10-37); BILIRUBIN,TOTAL 0.9 MG/DL (0.1-1.0); BLOOD UREA NITROGEN 10 MG/DL (7-18); BUN/CREATININE RATIO 10.4 (10.0-20.0); CHLORIDE 89 MMOL/L (99-107); CREATININE 0.96 MG/DL (0.60-1.10); GLUCOSE 174 MG/DL (70-104); POTASSIUM 3.1 MMOL/L (3.5-5.1); SODIUM 130 MMOL/L (135-145); TOTAL PROTEIN 7.9 G/DL (6.4-8.2); eGFR 84 ML/MIN
[2023-01-13] MEDS ORDERED: normal saline 1000ml 1,000 ML IV ONE ×2 (23:45)
[2023-01-13] MEDS ORDERED: ondansetron/PF 4mg/2ml inj IV ONE (23:45)
[2023-01-13] MEDS ORDERED: diphenhydrAMINE 50 mg/ml inj IV ONE (23:45)
[2023-01-13] MEDS ORDERED: haloperidol lactate 5mg/ml inj IM ONE (23:45)
[2023-01-14] MEDS ORDERED: PROC-8 PO (00:08)
[2023-01-14] MEDS ORDERED: ondansetron/PF 4mg/2ml inj IV ONE (01:20)
[2023-01-14 01:41] VITALS: BP 190/112; PULSE 86; RESP 16; O2SAT 96
--- NOTE | 2023-01-14 02:12 | NUR ---
0200 PT GIVEN DC INSTR WITH RX, STATES UNDERSTANDS ACI AND NEED TO CAR PARKER RX AT PHARMACY. REMOVE IV, CATH INTACT, DRESSING TO SITE, PT STATES N/V BETTER. PEND RIDE IN POC IN NAD
== END 2023-01-14 03:03 | disposition home or self-care (01) ==
LOC: ER 22:22
DX: E86.0 Dehydration (principal); R11.15 Cyclical vomiting syndrome unrelated to migraine; E87.1 Hypo-osmolality and hyponatremia; Z79.899 Other long term (current) drug therapy; Z79.2 Long term (current) use of antibiotics; I10 Essential (primary) hypertension; E11.9 Type 2 diabetes mellitus without complications; F12.90 Cannabis use, unspecified, uncomplicated
CPT/HCPCS: 36415; 71045; 80053; 83880; 84484; 85025; 93005; 96361; 96372; 96374; 96375; 96376; 99285; J1200; J1630; J2405; J7030

== ENCOUNTER 2023-10-22 00:50 | Emergency (ER) | payer OTHER, MEDICAID ==
[~2023-10-22] VITALS: Ht 180.3 cm; Wt 130.0 kg
[~2023-10-22 00:50] MED LIST changes: -HYDR-3965 PO; -MIRT-116 PO; +MIRT-142 PO; -PRED10TA23 PO; +PROC-8 PO
[2023-10-22 01:41] LABS: BASOPHILS # (AUTO) 0.1 X10'3 (0-0.2); BASOPHILS % (AUTO) 0.4 % (0-1); EOSINOPHILS % (AUTO) 0 % (0-6); HEMATOCRIT 38.7 % (42.0-52.0); HEMOGLOBIN 13.5 g/dl (14.0-17.9); LYMPHOCYTES # (AUTO) 1.4 X10'3 (1.1-4.8); LYMPHOCYTES % (AUTO) 7.9 % (21-51); MEAN CORPUSCULAR HEMOGLOBIN 31.6 PG (27.0-31.0); MEAN CORPUSCULAR HGB CONC 34.9 g/dL (33.0-36.5); MEAN CORPUSCULAR VOLUME 90.5 FL (78-98); MEAN PLATELET VOLUME 8.1 FL (7.4-10.4); MONOCYTES # (AUTO) 1.1 X10'3 (0-0.9); MONOCYTES % (AUTO) 6.2 % (2-12); NEUTROPHILS # (AUTO) 15.3 X10'3 (1.8-7.7); NEUTROPHILS % (AUTO) 85.5 % (42-75); PLATELET COUNT 406 X10'3 (140-440); RED BLOOD COUNT 4.28 X10'6 (4.70-6.10); RED CELL DISTRIBUTION WIDTH 13.5 % (11.5-14.5); WHITE BLOOD COUNT 17.9 X10'3 (4.5-11.0)
[2023-10-22] MEDS: ondansetron/PF 4mg/2ml inj IV ONE (01:44)
[2023-10-22] MEDS: metoclopramide 5 mg/ml inj IV ONE (01:48)
[2023-10-22] MEDS: proCHLORperazine 10 MG/2 ml inj IV ONE (01:53)
[2023-10-22 01:58] LABS: ALBUMIN 3.9 G/DL (3.4-5.0); ALKALINE PHOSPHATASE 90 IU/L (46-116); ANION GAP 17 (8-16); ASPARTATE AMINO TRANSFERASE 31 U/L (10-37); BILIRUBIN,TOTAL 1.3 MG/DL (0.1-1.0); BLOOD UREA NITROGEN 8 MG/DL (7-18); BUN/CREATININE RATIO 7.3 (10.0-20.0); CALCIUM 8.9 MG/DL (8.5-10.1); CHLORIDE 102 MMOL/L (99-107); CREATININE 1.09 MG/DL (0.60-1.10); GLUCOSE 234 MG/DL (70-104); LIPASE 55 U/L (16-77); POTASSIUM 3.3 MMOL/L (3.5-5.1); SODIUM 140 MMOL/L (135-145); TOTAL CARBON DIOXIDE 21.2 MMOL/L (24-32); eCRCL 87 ML/MIN; eGFR 72 ML/MIN
[2023-10-22 02:10] VITALS: TEMP 98
[2023-10-22] MEDS: normal saline 1000ml 1,000 ML IV ONE ×2 (02:28→02:29)
[2023-10-22 02:35] LABS: ALANINE AMINOTRANSFERASE 16 U/L (12-78)
[2023-10-22] MEDS ORDERED: haloperidol lactate 5mg/ml inj IM ONE (02:45)
[2023-10-22 02:50] LABS: BILIRUBIN,URINE NEGATIVE (Neg); CLARITY,URINE CLEAR (Clear); COLOR,URINE YELLOW (Yellow); GLUCOSE, URINE NEGATIVE (Neg); KETONES,URINE >=80 mg/dl (Neg); LEUKOCYTE ESTERASE ,URINE NEGATIVE (Neg); NITRITES, URINE NEGATIVE (Neg); OCCULT BLOOD,URINE NEGATIVE (Neg); PROTEIN,URINE NEGATIVE (Neg); UROBILINOGEN,URINE 0.2 E.U/dL (0.2-1.0)
[2023-10-22 02:55] LABS: UA COLLECTION TYPE CLN CATCH MIDSTREAM
[2023-10-22] MEDS: haloperidol lactate 5mg/ml inj IM ONE (03:05)
[2023-10-22] MEDS: diphenhydrAMINE 50 mg/ml inj IV ONE (03:08)
[2023-10-22] MEDS ORDERED: GLIM4TAB7 PO (04:01)
[2023-10-22 04:15] VITALS: BP 168/93; PULSE 80; RESP 18; O2SAT 96
[2023-10-22] MEDS: potassium Cl 20 mEq SR tablet PO STA (05:41)
[2023-10-22] MEDS: insulin regular, human 10 units/0.1 ml syringe IV ONE (05:42)
== END 2023-10-22 05:44 | disposition home or self-care (01) ==
LOC: ER 00:50
DX: R11.15 Cyclical vomiting syndrome unrelated to migraine (principal); E11.9 Type 2 diabetes mellitus without complications; I10 Essential (primary) hypertension; F12.90 Cannabis use, unspecified, uncomplicated
CPT/HCPCS: 36415; 80053; 81003; 82948; 83690; 84145; 85025; 96365; 96372; 96375; 99284; J0780; J1200; J1630; J2405; J2765; J7030; 96361; 96374

== ENCOUNTER 2024-04-04 11:27 | Inpatient (IN) | payer MEDICARE, MEDICAID, OTHER ==
[~2024-04-04] VITALS: Ht 180.3 cm; Wt 113.6 kg
[~2024-04-04 11:27] MED LIST changes: +ONDA-243 PO; +ONDA-245 PO; -ONDA4TAB12 PO; -ONDA8TAB13 PO
[2024-04-04] MEDS: normal saline 1000ML IV soln IVB ONE ×3 (12:24→14:45)
[2024-04-04 12:31] LABS: ALBUMIN 4.1 G/DL (3.4-5.0); ANION GAP 16 (8-16); BLOOD UREA NITROGEN 15 MG/DL (7-18); BUN/CREATININE RATIO 12.2 (10.0-20.0); CALCIUM 9.6 MG/DL (8.5-10.1); CHLORIDE 98 MMOL/L (99-107); CREATININE 1.23 MG/DL (0.60-1.10); GLUCOSE 242 MG/DL (70-104); LIPASE 37 U/L (16-77); POTASSIUM 3.4 MMOL/L (3.5-5.1); SODIUM 139 MMOL/L (135-145); TOTAL CARBON DIOXIDE 24.8 MMOL/L (24-32); eCRCL 77 ML/MIN; eGFR 62 ML/MIN
[2024-04-04] MEDS: metoclopramide 5 mg/ml inj IM ONE (12:36)
[2024-04-04] MEDS: ondansetron/PF 4mg/2ml inj IV ONE (12:39)
[2024-04-04 13:22] LABS: BASOPHILS # (AUTO) 0.1 X10'3 (0-0.2); BASOPHILS % (AUTO) 0.3 % (0-1); EOSINOPHILS % (AUTO) 0 % (0-6); HEMATOCRIT 42.3 % (42.0-52.0); LYMPHOCYTES % (AUTO) 7.3 % (21-51); MEAN CORPUSCULAR HEMOGLOBIN 30.2 PG (27.0-31.0); MEAN CORPUSCULAR HGB CONC 33.1 g/dL (33.0-36.5); MEAN CORPUSCULAR VOLUME 91.3 FL (78-98); MONOCYTES # (AUTO) 1.5 X10'3 (0-0.9); MONOCYTES % (AUTO) 5.4 % (2-12); PLATELET COUNT 460 X10'3 (140-440); RED BLOOD COUNT 4.63 X10'6 (4.70-6.10); RED CELL DISTRIBUTION WIDTH 13.3 % (11.5-14.5)
[2024-04-04 13:34] LABS: WHITE BLOOD COUNT 27.6 X10'3 (4.5-11.0)
[2024-04-04] MEDS: CefTRIAXone/D5W-Rocephin 1gm 50 ML IV ONE (14:10)
[2024-04-04 14:25] LABS: BILIRUBIN,URINE NEGATIVE (Neg); CLARITY,URINE CLEAR (Clear); COLOR,URINE YELLOW (Yellow); GLUCOSE, URINE NEGATIVE (Neg); KETONES,URINE 15 mg/dl (Neg); LEUKOCYTE ESTERASE ,URINE NEGATIVE (Neg); NITRITES, URINE NEGATIVE (Neg); OCCULT BLOOD,URINE MODERATE (Neg); PROTEIN,URINE NEGATIVE (Neg); UROBILINOGEN,URINE 0.2 E.U/dL (0.2-1.0)
[2024-04-04 14:31] LABS: MUCUS STRANDS FEW /LPF (Neg); SQUAMOUS EPITHELIAL CELL,UR FEW /LPF (FEW); UA COLLECTION TYPE NON-SPECIFIED
[2024-04-04 14:32] LABS: BACTERIA,URINE FEW /HPF (Neg); RBC,URINE 20-50 /HPF (0-2); WBC,URINE 0-4 /HPF (0-4)
[2024-04-04 14:41] LABS: URINE AMPHETAMINE SCREEN NEGATIVE (Neg); URINE BARBITUATE SCREEN NEGATIVE (Neg); URINE BENZODIAZEPINES SCREEN NEGATIVE (Neg); URINE CANNABINOID SCREEN POSITIVE (Neg); URINE COCAINE SCREEN NEGATIVE (Neg); URINE METHADONE SCREEN NEGATIVE (Neg); URINE OPIATE SCREEN NEGATIVE (Neg); URINE PHENCYCLIDINE SCREEN NEGATIVE (Neg)
[2024-04-04] MEDS ORDERED: iohexol 300mg/ml 100ml inj. ONE (14:43)
[2024-04-04 15:07] LABS: TOTAL CELLS COUNTED 100
[2024-04-04 15:08] LABS: LARGE PLATELETS FEW; PLATELET ESTIMATE INCREASED
[2024-04-04] MEDS: diphenhydrAMINE 50 mg/ml inj IV ONE (15:16)
[2024-04-04] MEDS: metoclopramide 5 mg/ml inj IV ONE (15:16)
[2024-04-04] MEDS: LORazepam 2 mg/ml vial IV ONE (15:16)
[2024-04-04] MEDS: haloperidol lactate 5mg/ml inj IVH ONE (16:17)
[2024-04-04] MEDS ORDERED: HYDROcodone/acetaminophen 5mg/325mg tablet PO PRN (16:20)
[2024-04-04] MEDS ORDERED: magnesium hydroxide 30ml (MOM) UD suspension PO PRN ×2 (16:20→16:50)
[2024-04-04] MEDS ORDERED: magnesium sulf-water 4G/100mL 100 ML IV PRN ×2 (16:20→16:50)
[2024-04-04] MEDS ORDERED: mag hydrox/Alum hydrox/simeth 30ml oral suspension PO PRN ×2 (16:20→16:50)
[2024-04-04] MEDS ORDERED: magnesium sulf-water 2g/50mL 50 ML IV PRN ×2 (16:20→16:50)
[2024-04-04] MEDS ORDERED: magnesium Cl slow-release 64mg tablet PO PRN ×2 (16:20→16:50)
[2024-04-04] MEDS ORDERED: acetaminophen 325mg tablet PO PRN ×2 (16:20→16:50)
[2024-04-04] MEDS ORDERED: potassium Cl 20 mEq SR tablet PO PRN ×2 (16:20→16:50)
[2024-04-04] MEDS ORDERED: potassium Cl 40MEQ/1/2NS 520ml 520 ML IV PRN ×2 (16:20→16:50)
[2024-04-04] MEDS ORDERED: morphine 2 MG/ML inj. syringe IV PRN (16:50)
[2024-04-04] MEDS: potassium Cl 20mEq in NS 1,000 ML IV SCH (17:08)
[2024-04-04] MEDS: normal saline 1000ml 1,000 ML IV SCH ×2 (17:20→18:14)
[2024-04-04] MEDS ORDERED: DEXTROSE 15 GM of carb/4 tabs (each vial/BOTTLE has 4 tablets) PO PRN ×2 (17:25)
[2024-04-04] MEDS ORDERED: dextrose 50%-water 50ml dispensing syringe IV PRN ×2 (17:25)
[2024-04-04] MEDS ORDERED: glucagon, human recombinant 1mg kit SUBCUT PRN (17:25)
[2024-04-04 17:36] LABS: HEMOGLOBIN A1C 5.8 % (4.5-6.2)
[2024-04-04] MEDS: docusate sod 100mg capsule PO SCH ×2 (19:57→20:00)
[2024-04-04] MEDS: K and/or MAG REPLACEMENT MC SCH ×2 (19:58→20:02)
[2024-04-04] MEDS: potassium Cl 20 mEq SR tablet PO PRN (20:49)
[2024-04-04] MEDS: INSULIN LISPRO 100 UNIT/ML INSULN.PEN MULTI-DOSE SQ SCH (21:00)
[2024-04-04] MEDS: pantoprazole 40 MG vial IV SCH (21:26)
[2024-04-04] MEDS: metoclopramide 5 mg/ml inj IV SCH (21:26)
[2024-04-05] MEDS: ondansetron/PF 4mg/2ml inj IV PRN ×2 (01:00→20:31)
[2024-04-05] MEDS: LORazepam 2 mg/ml vial IM ONE (01:55)
[2024-04-05 01:56] LABS: BASOPHILS # (AUTO) 0.1 X10'3 (0-0.2); EOSINOPHILS % (AUTO) 0 % (0-6); MONOCYTES # (AUTO) 1.2 X10'3 (0-0.9)
[2024-04-05 01:58] LABS: BASOPHILS % (AUTO) 0.4 % (0-1); HEMATOCRIT 34.1 % (42.0-52.0); HEMOGLOBIN 11.4 g/dl (14.0-17.9); LYMPHOCYTES # (AUTO) 3.3 X10'3 (1.1-4.8); LYMPHOCYTES % (AUTO) 13.8 % (21-51); MEAN CORPUSCULAR HEMOGLOBIN 30.5 PG (27.0-31.0); MEAN CORPUSCULAR HGB CONC 33.4 g/dL (33.0-36.5); MEAN CORPUSCULAR VOLUME 91.3 FL (78-98); MONOCYTES % (AUTO) 5.1 % (2-12); NEUTROPHILS # (AUTO) 19.4 X10'3 (1.8-7.7); NEUTROPHILS % (AUTO) 80.7 % (42-75); PLATELET COUNT 346 X10'3 (140-440); RED BLOOD COUNT 3.73 X10'6 (4.70-6.10); RED CELL DISTRIBUTION WIDTH 13.5 % (11.5-14.5)
[2024-04-05 02:13] LABS: ALANINE AMINOTRANSFERASE 18 U/L (12-78); ALBUMIN 3.3 G/DL (3.4-5.0); ALBUMIN/GLOBULIN RATIO 0.9 (1.1-1.5); ALKALINE PHOSPHATASE 65 IU/L (46-116); ANION GAP 7 (8-16); ASPARTATE AMINO TRANSFERASE 34 U/L (10-37); BILIRUBIN,TOTAL 0.6 MG/DL (0.1-1.0); BLOOD UREA NITROGEN 10 MG/DL (7-18); BUN/CREATININE RATIO 12.5 (10.0-20.0); CHLORIDE 103 MMOL/L (99-107); GLUCOSE 125 MG/DL (70-104); MAGNESIUM 1.7 MG/DL (1.5-2.4); POTASSIUM 3.9 MMOL/L (3.5-5.1); SODIUM 137 MMOL/L (135-145); TOTAL CARBON DIOXIDE 26.9 MMOL/L (24-32); TOTAL PROTEIN 6.8 G/DL (6.4-8.2); eCRCL 118 ML/MIN; eGFR > 90 ML/MIN
[2024-04-05] MEDS: metoclopramide 5 mg/ml inj IV PRN (02:37)
[2024-04-05] MEDS ORDERED: dextrose 50%-water 50ml dispensing syringe IV PRN ×2 (08:20)
[2024-04-05] MEDS ORDERED: DEXTROSE 15 GM of carb/4 tabs (each vial/BOTTLE has 4 tablets) PO PRN ×2 (08:20)
[2024-04-05] MEDS ORDERED: glucagon, human recombinant 1mg kit SUBCUT PRN (08:20)
[2024-04-05] MEDS: PERFLUTREN PROTEIN-A MICROSPHR (Optison) 0.22 MG/ML 3ML VIAL IV ONE (08:25)
[2024-04-05 08:32] LABS: C-REACTIVE PROTEIN 1.63 MG/DL (0.0-0.5)
[2024-04-05 08:47] VITALS: RESP 18
[2024-04-05] MEDS: enoxaparin 40mg/0.4ml syringe SUBCUT SCH (08:49)
[2024-04-05 08:58] VITALS: BP 133/64; PULSE 83; RESP 18; TEMP 98.6; O2SAT 93
[2024-04-05] MEDS: methylPREDNISolone sod succ 125mg/2ml vial IV SCH (12:33)
[2024-04-05 13:00] LABS: OCCULT BLOOD STOOL NEGATIVE (Neg)
[2024-04-05] MEDS ORDERED: gabapentin 400mg capsule PO SCH (13:00)
[2024-04-05 13:14] LABS: C DIFF ANTIGEN NEGATIVE (NEGATIVE); C DIFF SPECIMEN=DIARRHEA? ACCEPTABLE; C DIFFICILE TOXINS A&B NEGATIVE (Neg)
[2024-04-05 13:24] LABS: SYPHILIS SCREENING TEST POC NEGATIVE (Negative)
[2024-04-05] MEDS: gabapentin 400mg capsule PO SCH (16:00)
[2024-04-05] MEDS ORDERED: iohexol 350MG/ML 100ml bottle IV ONE (17:59)
[2024-04-05 18:00] VITALS: BP 149/72; PULSE 85; RESP 12; TEMP 98.5; O2SAT 96
[2024-04-05] MEDS: duloxetine 20mg capsule.DR PO SCH (20:00)
[2024-04-05] MEDS: quetiapine 100mg tablet PO SCH (20:45)
[2024-04-05 22:00] VITALS: BP 147/69; PULSE 74; RESP 20; TEMP 97.7; O2SAT 97
[2024-04-06 06:00] VITALS: BP 135/62; PULSE 81; RESP 22; TEMP 97.4; O2SAT 98
[2024-04-06 06:27] LABS: ALANINE AMINOTRANSFERASE 31 U/L (12-78); ALBUMIN 3.3 G/DL (3.4-5.0); ALBUMIN/GLOBULIN RATIO 0.9 (1.1-1.5); ALKALINE PHOSPHATASE 60 IU/L (46-116); ANION GAP 7 (8-16); ASPARTATE AMINO TRANSFERASE 63 U/L (10-37); BILIRUBIN,TOTAL 0.6 MG/DL (0.1-1.0); BLOOD UREA NITROGEN 8 MG/DL (7-18); CALCIUM 8.2 MG/DL (8.5-10.1); CHLORIDE 99 MMOL/L (99-107); CREATININE 0.73 MG/DL (0.60-1.10); GLUCOSE 121 MG/DL (70-104); MAGNESIUM 2.1 MG/DL (1.5-2.4); POTASSIUM 3.6 MMOL/L (3.5-5.1); SODIUM 134 MMOL/L (135-145); TOTAL PROTEIN 6.8 G/DL (6.4-8.2); eCRCL 129 ML/MIN; eGFR > 90 ML/MIN
[2024-04-06 06:49] LABS: BASOPHILS % (AUTO) 0.2 % (0-1); EOSINOPHILS % (AUTO) 0 % (0-6); HEMATOCRIT 33.8 % (42.0-52.0); HEMOGLOBIN 11.3 g/dl (14.0-17.9); LYMPHOCYTES # (AUTO) 4.5 X10'3 (1.1-4.8); LYMPHOCYTES % (AUTO) 20.7 % (21-51); MEAN CORPUSCULAR HEMOGLOBIN 30.2 PG (27.0-31.0); MEAN CORPUSCULAR HGB CONC 33.5 g/dL (33.0-36.5); MEAN PLATELET VOLUME 8.4 FL (7.4-10.4); MONOCYTES # (AUTO) 1.7 X10'3 (0-0.9); MONOCYTES % (AUTO) 7.6 % (2-12); NEUTROPHILS # (AUTO) 15.6 X10'3 (1.8-7.7); NEUTROPHILS % (AUTO) 71.5 % (42-75); PLATELET COUNT 316 X10'3 (140-440); RED BLOOD COUNT 3.76 X10'6 (4.70-6.10); RED CELL DISTRIBUTION WIDTH 13.4 % (11.5-14.5); WHITE BLOOD COUNT 21.8 X10'3 (4.5-11.0)
[2024-04-06 07:45] VITALS: RESP 22
[2024-04-06] MEDS: allopurinol 100mg tablet PO SCH (08:00)
[2024-04-06] MEDS: mirtazapine 15mg tablet PO SCH (08:00)
[2024-04-06] MEDS: losartan 25mg tablet PO SCH (08:00)
[2024-04-06 08:44] LABS: HIV ANTIBODY 1&2 RAPID NON-REACTIVE (Neg)
[2024-04-06 10:00] VITALS: BP 131/72; PULSE 79; RESP 16; TEMP 98.6; O2SAT 91
[2024-04-06] MEDS ORDERED: ciprofloxacin lact 400MG/200ML 200 ML IV SCH (12:55)
[2024-04-06] MEDS: metroNIDAZOLE-Flagyl 500mg/NS 100 ML IV SCH (14:07)
[2024-04-06] MEDS: CIPROFLOXACIN 200mg/D5W 100 ML premix IV SCH ×2 (15:51→17:25)
[2024-04-06] MEDS: gabapentin 300mg capsule PO SCH (16:00)
[2024-04-06 18:00] VITALS: BP 153/80; PULSE 88; RESP 16; TEMP 98.9; O2SAT 93
[2024-04-06] MEDS: duloxetine 20mg capsule.DR PO SCH (21:00)
[2024-04-06 22:00] VITALS: BP 133/77; PULSE 80; RESP 16; TEMP 96.8; O2SAT 98
[2024-04-07 06:00] VITALS: BP 148/82; PULSE 77; RESP 19; TEMP 98.1; O2SAT 98
[2024-04-07 06:08] LABS: BASOPHILS # (AUTO) 0.1 X10'3 (0-0.2); BASOPHILS % (AUTO) 0.3 % (0-1); EOSINOPHILS # (AUTO) 0.1 X10'3 (0-0.9); EOSINOPHILS % (AUTO) 0.3 % (0-6); HEMATOCRIT 35.1 % (42.0-52.0); HEMOGLOBIN 12.1 g/dl (14.0-17.9); LYMPHOCYTES # (AUTO) 4.2 X10'3 (1.1-4.8); LYMPHOCYTES % (AUTO) 24.1 % (21-51); MEAN CORPUSCULAR HEMOGLOBIN 30.7 PG (27.0-31.0); MEAN CORPUSCULAR HGB CONC 34.6 g/dL (33.0-36.5); MEAN CORPUSCULAR VOLUME 88.7 FL (78-98); MONOCYTES # (AUTO) 1.4 X10'3 (0-0.9); MONOCYTES % (AUTO) 7.9 % (2-12); NEUTROPHILS # (AUTO) 11.7 X10'3 (1.8-7.7); NEUTROPHILS % (AUTO) 67.4 % (42-75); PLATELET COUNT 297 X10'3 (140-440); RED BLOOD COUNT 3.96 X10'6 (4.70-6.10); WHITE BLOOD COUNT 17.4 X10'3 (4.5-11.0)
[2024-04-07 06:13] LABS: ALANINE AMINOTRANSFERASE 34 U/L (12-78); ALBUMIN 3.3 G/DL (3.4-5.0); ALKALINE PHOSPHATASE 62 IU/L (46-116); ANION GAP 9 (8-16); ASPARTATE AMINO TRANSFERASE 33 U/L (10-37); BILIRUBIN,TOTAL 0.8 MG/DL (0.1-1.0); BLOOD UREA NITROGEN 8 MG/DL (7-18); BUN/CREATININE RATIO 9.9 (10.0-20.0); CALCIUM 8.1 MG/DL (8.5-10.1); CHLORIDE 97 MMOL/L (99-107); CREATININE 0.81 MG/DL (0.60-1.10); GLUCOSE 106 MG/DL (70-104); MAGNESIUM 2.1 MG/DL (1.5-2.4); SODIUM 134 MMOL/L (135-145); TOTAL CARBON DIOXIDE 28.4 MMOL/L (24-32); TOTAL PROTEIN 6.6 G/DL (6.4-8.2); eCRCL 116 ML/MIN; eGFR > 90 ML/MIN
[2024-04-07 08:00] VITALS: RESP 19; O2SAT 98
[2024-04-07] MEDS: potassium Cl 20 mEq SR tablet PO PRN ×2 (09:06→19:46)
[2024-04-07 10:00] VITALS: BP 166/80; PULSE 62; RESP 14; TEMP 97.9; O2SAT 98
[2024-04-07] MEDS ORDERED: ONDA-245 PO (11:37)
[2024-04-07] MEDS ORDERED: CIPR-259 PO (11:37)
[2024-04-07] MEDS ORDERED: DULO20CA50 PO (11:37)
[2024-04-07] MEDS ORDERED: METR-159 PO (11:37)
[2024-04-07] MEDS: ondansetron/PF 4mg/2ml inj IV PRN (12:48)
[2024-04-07 14:57] VITALS: RESP 14
[2024-04-07 18:00] VITALS: BP 171/93; PULSE 87; RESP 16; TEMP 97.1; O2SAT 97
[2024-04-07] MEDS ORDERED: magnesium sulf-water 4G/100mL 100 ML IV PRN (18:35)
[2024-04-07] MEDS ORDERED: magnesium sulf-water 2g/50mL 50 ML IV PRN (18:35)
[2024-04-07] MEDS ORDERED: magnesium Cl slow-release 64mg tablet PO PRN (18:35)
[2024-04-07] MEDS ORDERED: potassium Cl 40MEQ/1/2NS 520ml 520 ML IV PRN (18:35)
[2024-04-07] MEDS: K and/or MAG REPLACEMENT MC SCH (20:01)
[2024-04-07 22:00] VITALS: BP 128/66; PULSE 83; RESP 16; TEMP 98.5; O2SAT 96
[2024-04-07] MEDS: HYDROcodone/acetaminophen 5mg/325mg tablet PO PRN (23:42)
[2024-04-08] MEDS: potassium Cl 20 mEq SR tablet PO PRN (04:57)
[2024-04-08 05:26] LABS: HEPATITIS C VIRUS ANTIBODY Non Reactive (Non Reactive)
[2024-04-08 05:26] LABS: HBSAG SCREEN Negative (Negative)
[2024-04-08 06:00] VITALS: BP 152/93; PULSE 68; RESP 14; TEMP 98; O2SAT 97
[2024-04-08 06:21] LABS: BASOPHILS # (AUTO) 0.1 X10'3 (0-0.2); BASOPHILS % (AUTO) 0.5 % (0-1); EOSINOPHILS # (AUTO) 0.1 X10'3 (0-0.9); EOSINOPHILS % (AUTO) 0.9 % (0-6); HEMATOCRIT 38.4 % (42.0-52.0); HEMOGLOBIN 13.4 g/dl (14.0-17.9); LYMPHOCYTES # (AUTO) 4.1 X10'3 (1.1-4.8); LYMPHOCYTES % (AUTO) 29.1 % (21-51); MEAN CORPUSCULAR VOLUME 88.5 FL (78-98); MEAN PLATELET VOLUME 7.7 FL (7.4-10.4); MONOCYTES # (AUTO) 1.2 X10'3 (0-0.9); MONOCYTES % (AUTO) 8.5 % (2-12); NEUTROPHILS # (AUTO) 8.6 X10'3 (1.8-7.7); PLATELET COUNT 286 X10'3 (140-440); RED BLOOD COUNT 4.33 X10'6 (4.70-6.10); RED CELL DISTRIBUTION WIDTH 13.2 % (11.5-14.5); WHITE BLOOD COUNT 14.1 X10'3 (4.5-11.0)
[2024-04-08 06:22] LABS: ALANINE AMINOTRANSFERASE 25 U/L (12-78); ALBUMIN 3.1 G/DL (3.4-5.0); ALBUMIN/GLOBULIN RATIO 0.9 (1.1-1.5); ALKALINE PHOSPHATASE 63 IU/L (46-116); ANION GAP 4 (8-16); ASPARTATE AMINO TRANSFERASE 33 U/L (10-37); BILIRUBIN,TOTAL 0.9 MG/DL (0.1-1.0); BLOOD UREA NITROGEN 7 MG/DL (7-18); BUN/CREATININE RATIO 8.2 (10.0-20.0); CALCIUM 8.2 MG/DL (8.5-10.1); CHLORIDE 100 MMOL/L (99-107); CREATININE 0.85 MG/DL (0.60-1.10); GLUCOSE 103 MG/DL (70-104); MAGNESIUM 2.2 MG/DL (1.5-2.4); POTASSIUM 3.3 MMOL/L (3.5-5.1); SODIUM 135 MMOL/L (135-145); TOTAL CARBON DIOXIDE 30.7 MMOL/L (24-32); TOTAL PROTEIN 6.7 G/DL (6.4-8.2); eCRCL 111 ML/MIN; eGFR > 90 ML/MIN
[2024-04-08] MEDS ORDERED: POTA-207 PO (08:42)
[2024-04-08 10:00] VITALS: BP 158/90; PULSE 63; RESP 18; TEMP 99; O2SAT 97
== END 2024-04-08 14:20 | disposition home or self-care (01) | DRG 393 ==
LOC: ER 11:28 → ED HOLD 16:23 → UNDOADMIN 16:23 → ED HOLD 16:52 → EDBEDREQ 04-05 05:44 → ORTHO 4S 04-05 08:30 → ED HOLD 04-05 08:30
PROVIDERS: ADMIT Internal Medicine; ATTEND Internal Medicine
PROC: BW211ZZ Computerized Tomography (CT Scan) of Abdomen and Pelvis using Low Osmolar Contrast (ICD-10-PCS; 2024-04-04)
PROC: BW211ZZ Computerized Tomography (CT Scan) of Abdomen and Pelvis using Low Osmolar Contrast (ICD-10-PCS; principal; 2024-04-05)
DX: K65.4 Sclerosing mesenteritis (principal); N17.0 Acute kidney failure with tubular necrosis; E87.20 Acidosis, unspecified; E11.9 Type 2 diabetes mellitus without complications; F41.9 Anxiety disorder, unspecified; G47.30 Sleep apnea, unspecified; F31.9 Bipolar disorder, unspecified; E87.6 Hypokalemia; E86.0 Dehydration; R11.2 Nausea with vomiting, unspecified; F12.10 Cannabis abuse, uncomplicated; I10 Essential (primary) hypertension; Z79.84 Long term (current) use of oral hypoglycemic drugs; Z79.899 Other long term (current) drug therapy
CPT/HCPCS: 36415; 71045; 74174; 74177; 80048; 80053; 80305; 81001; 82272; 82948; 83036; 83605; 83690; 83735; 84132; 84145; 85007; 85025; 85651; 86140; 86592; 86703; 86803; 87040; 87045; 87046; 87081; 87324; 87340; 87449; 87522; 89055; 93005; 93306; 99285; G0378; J0696; J0744; J1200; J1630; J1650; J1815; J2060; J2405; J2470; J2765; J2919; J3480; J3490; J7030; J8597; Q9967

== ENCOUNTER 2024-04-29 06:21 | Emergency (ER) | payer OTHER, MEDICARE, MEDICAID ==
[~2024-04-29] VITALS: Ht 180.3 cm; Wt 103.9 kg
[~2024-04-29 06:21] MED LIST changes: -AMOX-580 PO; -DICY10CA88 PO; -GABA600T13 PO; -GLIM4TAB7 PO; -ONDA-243 PO; -OXYC-145 PO; -PANT-47 PO; -PROC-8 PO
[2024-04-29] MEDS: normal saline 1000ml 1,000 ML IV ONE ×2 (06:50→08:38)
[2024-04-29] MEDS: haloperidol lactate 5mg/ml inj IVH ONE (06:51)
[2024-04-29] MEDS: ondansetron/PF 4mg/2ml inj IV ONE (06:51)
[2024-04-29] MEDS: diazepam inj 5 MG/ML inj. IV ONE (07:17)
[2024-04-29 07:29] LABS: BASOPHILS % (AUTO) 0.2 % (0-1); EOSINOPHILS % (AUTO) 0 % (0-6); HEMATOCRIT 41.8 % (42.0-52.0); HEMOGLOBIN 14.2 g/dl (14.0-17.9); LYMPHOCYTES # (AUTO) 2.2 X10'3 (1.1-4.8); LYMPHOCYTES % (AUTO) 12.7 % (21-51); MEAN CORPUSCULAR HEMOGLOBIN 30.9 PG (27.0-31.0); MEAN CORPUSCULAR VOLUME 90.9 FL (78-98); MEAN PLATELET VOLUME 8.5 FL (7.4-10.4); MONOCYTES # (AUTO) 0.8 X10'3 (0-0.9); MONOCYTES % (AUTO) 4.6 % (2-12); NEUTROPHILS # (AUTO) 14.6 X10'3 (1.8-7.7); NEUTROPHILS % (AUTO) 82.5 % (42-75); PLATELET COUNT 465 X10'3 (140-440); RED CELL DISTRIBUTION WIDTH 13.6 % (11.5-14.5); WHITE BLOOD COUNT 17.7 X10'3 (4.5-11.0)
[2024-04-29 07:43] LABS: ALBUMIN 4.3 G/DL (3.4-5.0); ANION GAP 22 (8-16); BLOOD UREA NITROGEN 11 MG/DL (7-18); BUN/CREATININE RATIO 8.7 (10.0-20.0); CALCIUM 9.8 MG/DL (8.5-10.1); CHLORIDE 99 MMOL/L (99-107); CREATININE 1.26 MG/DL (0.60-1.10); GLUCOSE 219 MG/DL (70-104); LIPASE 74 U/L (16-77); POTASSIUM 3.2 MMOL/L (3.5-5.1); SODIUM 142 MMOL/L (135-145); eCRCL 75 ML/MIN; eGFR 61 ML/MIN
[2024-04-29 07:52] LABS: ETHANOL < 10 MG/DL (<10)
[2024-04-29 08:05] VITALS: TEMP 98.4
[2024-04-29 08:13] LABS: ALANINE AMINOTRANSFERASE 24 U/L (12-78); ALBUMIN/GLOBULIN RATIO 1.1 (1.1-1.5); ALKALINE PHOSPHATASE 70 IU/L (46-116); ASPARTATE AMINO TRANSFERASE 32 U/L (10-37); BILIRUBIN,TOTAL 1.1 MG/DL (0.1-1.0); TOTAL PROTEIN 8.3 G/DL (6.4-8.2)
[2024-04-29] MEDS: diphenhydrAMINE 50 mg/ml inj IV ONE (08:37)
[2024-04-29] MEDS: proCHLORperazine 10 MG/2 ml inj IV ONE (08:37)
[2024-04-29 10:10] LABS: BILIRUBIN,URINE NEGATIVE (Neg); CLARITY,URINE CLEAR (Clear); COLOR,URINE YELLOW (Yellow); GLUCOSE, URINE NEGATIVE (Neg); KETONES,URINE >=80 mg/dl (Neg); LEUKOCYTE ESTERASE ,URINE NEGATIVE (Neg); NITRITES, URINE NEGATIVE (Neg); OCCULT BLOOD,URINE NEGATIVE (Neg); PH,URINE 8.5 (4.8-8.0); PROTEIN,URINE >=300 mg/dl (Neg); UROBILINOGEN,URINE 0.2 E.U/dL (0.2-1.0)
[2024-04-29 10:23] LABS: UA COLLECTION TYPE NON-SPECIFIED
[2024-04-29 10:24] LABS: BACTERIA,URINE FEW /HPF (Neg); MUCUS STRANDS FEW /LPF (Neg); SQUAMOUS EPITHELIAL CELL,UR FEW /LPF (FEW); WBC,URINE 0-4 /HPF (0-4)
[2024-04-29 10:25] LABS: COARSE GRANULAR CAST 0-3 /LPF (NEGATIVE)
[2024-04-29] MEDS ORDERED: PROM25TA14 PO (10:46)
[2024-04-29] MEDS ORDERED: ONDA-243 PO (10:46)
[2024-04-29 10:55] VITALS: BP 165/82; PULSE 86; RESP 18; O2SAT 96
== END 2024-04-29 10:56 | disposition home or self-care (01) ==
LOC: ER 06:22
DX: R11.10 Vomiting, unspecified (principal); R10.84 Generalized abdominal pain; F12.90 Cannabis use, unspecified, uncomplicated; I10 Essential (primary) hypertension; G47.30 Sleep apnea, unspecified; E11.9 Type 2 diabetes mellitus without complications; Z79.899 Other long term (current) drug therapy
CPT/HCPCS: 36415; 71045; 80053; 80320; 81001; 82948; 83690; 85025; 96361; 96374; 96375; 99285; J0780; J1200; J2405; J3360; J7030; A4615; J1630

== ENCOUNTER 2024-05-13 13:38 | Inpatient (IN) | payer MEDICARE, MEDICAID, OTHER ==
[~2024-05-13] VITALS: Ht 180.3 cm; Wt 103.5 kg
[~2024-05-13 13:38] MED LIST changes: +ONDA-243 PO
[2024-05-13 14:34] LABS: BASOPHILS # (AUTO) 0.1 X10'3 (0-0.2); BASOPHILS % (AUTO) 0.4 % (0-1); EOSINOPHILS % (AUTO) 0 % (0-6); HEMATOCRIT 38.6 % (42.0-52.0); HEMOGLOBIN 13.1 g/dl (14.0-17.9); LYMPHOCYTES # (AUTO) 1.5 X10'3 (1.1-4.8); LYMPHOCYTES % (AUTO) 6.3 % (21-51); MEAN CORPUSCULAR HEMOGLOBIN 30.5 PG (27.0-31.0); MEAN CORPUSCULAR VOLUME 89.6 FL (78-98); MONOCYTES # (AUTO) 0.8 X10'3 (0-0.9); MONOCYTES % (AUTO) 3.5 % (2-12); NEUTROPHILS # (AUTO) 21.3 X10'3 (1.8-7.7); NEUTROPHILS % (AUTO) 89.8 % (42-75); PLATELET COUNT 470 X10'3 (140-440); RED BLOOD COUNT 4.31 X10'6 (4.70-6.10); RED CELL DISTRIBUTION WIDTH 13.3 % (11.5-14.5); WHITE BLOOD COUNT 23.7 X10'3 (4.5-11.0)
[2024-05-13] MEDS: normal saline 1000ml 1,000 ML IV ONE (14:36)
[2024-05-13] MEDS: ondansetron/PF 4mg/2ml inj IV ONE (14:36)
[2024-05-13 14:37] LABS: ACETONE NEGATIVE (NEGATIVE)
[2024-05-13 14:45] LABS: ALANINE AMINOTRANSFERASE 20 U/L (12-78); ALBUMIN 3.3 G/DL (3.4-5.0); ALBUMIN/GLOBULIN RATIO 0.8 (1.1-1.5); ALKALINE PHOSPHATASE 81 IU/L (46-116); ANION GAP 11 (8-16); ASPARTATE AMINO TRANSFERASE 20 U/L (10-37); BILIRUBIN,TOTAL 0.8 MG/DL (0.1-1.0); BLOOD UREA NITROGEN 5 MG/DL (7-18); CALCIUM 8.7 MG/DL (8.5-10.1); CHLORIDE 100 MMOL/L (99-107); GLUCOSE 202 MG/DL (70-104); LIPASE 13 U/L (16-77); POTASSIUM 3.2 MMOL/L (3.5-5.1); SODIUM 138 MMOL/L (135-145); TOTAL PROTEIN 7.4 G/DL (6.4-8.2); eCRCL 94 ML/MIN; eGFR 79 ML/MIN
[2024-05-13] MEDS: haloperidol lactate 5mg/ml inj IM ONE (14:55)
[2024-05-13] MEDS ORDERED: iohexol 300mg/ml 100ml inj. ONE (15:39)
[2024-05-13] MEDS ORDERED: IBUP-1984 PO (16:44)
[2024-05-13] MEDS ORDERED: CEPHALEXIN PO (16:44)
[2024-05-13] MEDS ORDERED: GLIM1TAB56 PO (16:44)
[2024-05-13] MEDS ORDERED: [UNRECOGNIZED DRUG - CODE] PO (16:44)
[2024-05-13] MEDS ORDERED: ACET-890 PO (16:44)
[2024-05-13] MEDS ORDERED: ALOG12.52 PO (16:44)
[2024-05-13] MEDS ORDERED: CHOL10CA2 PO (16:44)
[2024-05-13] MEDS: proCHLORperazine 10 MG/2 ml inj IV ONE (16:50)
[2024-05-13] MEDS: normal saline 1000ML IV soln IV ONE (16:51)
[2024-05-13] MEDS: piperacillin/tazo 3.375gm/50ml 50 ML IV ONE (16:51)
[2024-05-13 16:59] LABS: BILIRUBIN,URINE NEGATIVE (Neg); CLARITY,URINE CLEAR (Clear); COLOR,URINE YELLOW (Yellow); GLUCOSE, URINE NEGATIVE (Neg); KETONES,URINE NEGATIVE (Neg); LEUKOCYTE ESTERASE ,URINE NEGATIVE (Neg); NITRITES, URINE NEGATIVE (Neg); OCCULT BLOOD,URINE NEGATIVE (Neg); PH,URINE >=9.0 (4.8-8.0); PROTEIN,URINE 30 mg/dl (Neg); UROBILINOGEN,URINE 0.2 E.U/dL (0.2-1.0)
[2024-05-13 17:01] LABS: UA COLLECTION TYPE VOIDED
[2024-05-13 17:02] LABS: BACTERIA,URINE NONE SEEN /HPF (Neg); MUCUS STRANDS NONE SEEN /LPF (Neg); RBC,URINE 0-2 /HPF (0-2); SQUAMOUS EPITHELIAL CELL,UR FEW /LPF (FEW); WBC,URINE 0-4 /HPF (0-4)
[2024-05-13] MEDS ORDERED: HYDROmorphone inj. 0.5 MG/0.5 ML DISP.SYRIN IV PRN (18:10)
[2024-05-13] MEDS ORDERED: potassium Cl 20 mEq SR tablet PO PRN (18:10)
[2024-05-13] MEDS ORDERED: magnesium sulf-water 4G/100mL 100 ML IV PRN (18:10)
[2024-05-13] MEDS ORDERED: magnesium sulf-water 2g/50mL 50 ML IV PRN (18:10)
[2024-05-13] MEDS ORDERED: mag hydrox/Alum hydrox/simeth 30ml oral suspension PO PRN (18:10)
[2024-05-13] MEDS ORDERED: HYDROmorphone/PF 0.2 MG/ML SYRINGE IV PRN (18:10)
[2024-05-13] MEDS ORDERED: magnesium hydroxide 30ml (MOM) UD suspension PO PRN (18:10)
[2024-05-13] MEDS ORDERED: acetaminophen 325mg tablet PO PRN (18:10)
[2024-05-13] MEDS ORDERED: magnesium Cl slow-release 64mg tablet PO PRN (18:10)
[2024-05-13] MEDS ORDERED: ONDA-243 PO (18:18)
[2024-05-13 18:54] LABS: APTT 24 SECONDS (22-32); INR 1.1 INR; PROTHROMBIN TIME 11.3 SECONDS (9.0-12.0)
[2024-05-13 18:57] LABS: HEMOGLOBIN A1C 5.9 % (4.5-6.2)
[2024-05-13] MEDS: normal saline 1000ml 1,000 ML IV SCH (19:07)
[2024-05-13 19:30] VITALS: BP 161/80; PULSE 99; RESP 15; TEMP 99.2; O2SAT 93
[2024-05-13] MEDS: ondansetron/PF 4mg/2ml inj IV PRN (19:36)
[2024-05-13 20:00] VITALS: RESP 18; O2SAT 93
[2024-05-13] MEDS: potassium Cl 40MEQ/1/2NS 520ml 520 ML IV PRN (20:06)
[2024-05-13] MEDS: heparin, porcine 5000 units/ml vial SQ SCH (20:06)
[2024-05-13] MEDS: quetiapine 100mg tablet PO SCH (20:06)
[2024-05-13] MEDS: K and/or MAG REPLACEMENT MC SCH (20:19)
[2024-05-13] MEDS: metoclopramide 5 mg/ml inj IV PRN (21:46)
[2024-05-13 22:00] VITALS: BP 175/90; PULSE 103; RESP 24; TEMP 99.1; O2SAT 97
[2024-05-14] MEDS ORDERED: VANCOMYCIN 1GM 200ML H20 (PEG) 200 ML IV SCH
[2024-05-14] MEDS: piperacillin/tazo 3.375gm/50ml 50 ML IV SCH (00:07)
[2024-05-14 06:00] VITALS: BP 157/80; PULSE 95; RESP 16; TEMP 98.1; O2SAT 98
[2024-05-14 06:23] LABS: BASOPHILS # (AUTO) 0.1 X10'3 (0-0.2); BASOPHILS % (AUTO) 0.2 % (0-1); EOSINOPHILS % (AUTO) 0.1 % (0-6); HEMOGLOBIN 12.5 g/dl (14.0-17.9); LYMPHOCYTES # (AUTO) 3.4 X10'3 (1.1-4.8); LYMPHOCYTES % (AUTO) 15.1 % (21-51); MEAN CORPUSCULAR HEMOGLOBIN 30.4 PG (27.0-31.0); MEAN CORPUSCULAR HGB CONC 33.7 g/dL (33.0-36.5); MEAN CORPUSCULAR VOLUME 90.1 FL (78-98); MEAN PLATELET VOLUME 8.2 FL (7.4-10.4); MONOCYTES # (AUTO) 1.7 X10'3 (0-0.9); MONOCYTES % (AUTO) 7.6 % (2-12); NEUTROPHILS # (AUTO) 17.5 X10'3 (1.8-7.7); PLATELET COUNT 413 X10'3 (140-440); RED BLOOD COUNT 4.11 X10'6 (4.70-6.10); RED CELL DISTRIBUTION WIDTH 13.2 % (11.5-14.5); WHITE BLOOD COUNT 22.7 X10'3 (4.5-11.0)
[2024-05-14 06:42] LABS: ALANINE AMINOTRANSFERASE 22 U/L (12-78); ALBUMIN 3.1 G/DL (3.4-5.0); ALBUMIN/GLOBULIN RATIO 0.8 (1.1-1.5); ALKALINE PHOSPHATASE 72 IU/L (46-116); ANION GAP 6 (8-16); ASPARTATE AMINO TRANSFERASE 21 U/L (10-37); BILIRUBIN,TOTAL 0.5 MG/DL (0.1-1.0); BLOOD UREA NITROGEN 4 MG/DL (7-18); BUN/CREATININE RATIO 5.1 (10.0-20.0); CHLORIDE 100 MMOL/L (99-107); CHOL/HDL RATIO 2.7 (0.00-4.99); CHOLESTEROL 125 MG/DL (0-200); CREATININE 0.79 MG/DL (0.60-1.10); GLUCOSE 103 MG/DL (70-104); HDL CHOLESTEROL 47 MG/DL (35-60); LDL CHOLESTEROL 61 MG/DL (50-100); MAGNESIUM 1.7 MG/DL (1.5-2.4); POTASSIUM 3.2 MMOL/L (3.5-5.1); SODIUM 137 MMOL/L (135-145); TOTAL CARBON DIOXIDE 30.9 MMOL/L (24-32); TRIGLYCERIDES 79 MG/DL (20-135); eCRCL 119 ML/MIN; eGFR > 90 ML/MIN
[2024-05-14] MEDS: mirtazapine 15mg tablet PO SCH (09:21)
[2024-05-14] MEDS: cholecalciferol (vitamin D3) 1,000 unit (25mcg) tablet PO SCH (09:22)
[2024-05-14 10:00] VITALS: BP 164/86; PULSE 90; RESP 16; TEMP 98.1; O2SAT 97
[2024-05-14] MEDS: lactose-reduced food (Ensure Enlive) - 237ml bottle PO SCH (13:53)
[2024-05-14] MEDS ORDERED: VANCOMYCIN LEVEL IV ONE (15:30)
[2024-05-14 18:00] VITALS: BP 162/84; PULSE 81; RESP 16; TEMP 97.5; O2SAT 98
[2024-05-14 20:00] VITALS: RESP 16; O2SAT 98
[2024-05-14] MEDS: proCHLORperazine 10 MG/2 ml inj IV PRN (21:15)
[2024-05-14 22:00] VITALS: BP 173/86; PULSE 62; RESP 13; TEMP 98.5; O2SAT 95
[2024-05-15 00:20] LABS: URINE AMPHETAMINE SCREEN NEGATIVE (Neg); URINE BARBITUATE SCREEN NEGATIVE (Neg); URINE BENZODIAZEPINES SCREEN NEGATIVE (Neg); URINE CANNABINOID SCREEN POSITIVE (Neg); URINE COCAINE SCREEN NEGATIVE (Neg); URINE METHADONE SCREEN NEGATIVE (Neg); URINE OPIATE SCREEN NEGATIVE (Neg); URINE PHENCYCLIDINE SCREEN NEGATIVE (Neg)
[2024-05-15 06:00] VITALS: BP 159/99; PULSE 95; RESP 12; TEMP 98.9; O2SAT 96
[2024-05-15 07:03] LABS: BASOPHILS % (AUTO) 0.2 % (0-1); EOSINOPHILS % (AUTO) 0.1 % (0-6); HEMATOCRIT 36.4 % (42.0-52.0); HEMOGLOBIN 12.7 g/dl (14.0-17.9); LYMPHOCYTES # (AUTO) 3.4 X10'3 (1.1-4.8); LYMPHOCYTES % (AUTO) 19.7 % (21-51); MEAN CORPUSCULAR HEMOGLOBIN 30.9 PG (27.0-31.0); MEAN CORPUSCULAR VOLUME 88.4 FL (78-98); MEAN PLATELET VOLUME 7.9 FL (7.4-10.4); MONOCYTES # (AUTO) 1.2 X10'3 (0-0.9); NEUTROPHILS # (AUTO) 12.8 X10'3 (1.8-7.7); PLATELET COUNT 397 X10'3 (140-440); RED BLOOD COUNT 4.11 X10'6 (4.70-6.10); RED CELL DISTRIBUTION WIDTH 13.1 % (11.5-14.5); WHITE BLOOD COUNT 17.5 X10'3 (4.5-11.0)
[2024-05-15 07:45] LABS: ALANINE AMINOTRANSFERASE 20 U/L (12-78); ALBUMIN/GLOBULIN RATIO 0.8 (1.1-1.5); ALKALINE PHOSPHATASE 70 IU/L (46-116); ANION GAP 7 (8-16); ASPARTATE AMINO TRANSFERASE 21 U/L (10-37); BILIRUBIN,TOTAL 0.5 MG/DL (0.1-1.0); BLOOD UREA NITROGEN 3 MG/DL (7-18); BUN/CREATININE RATIO 4.5 (10.0-20.0); CALCIUM 8.2 MG/DL (8.5-10.1); CHLORIDE 95 MMOL/L (99-107); CREATININE 0.67 MG/DL (0.60-1.10); GLUCOSE 116 MG/DL (70-104); MAGNESIUM 1.6 MG/DL (1.5-2.4); POTASSIUM 3.2 MMOL/L (3.5-5.1); SODIUM 134 MMOL/L (135-145); TOTAL CARBON DIOXIDE 31.6 MMOL/L (24-32); TOTAL PROTEIN 6.9 G/DL (6.4-8.2); eCRCL 140 ML/MIN; eGFR > 90 ML/MIN
[2024-05-15 08:30] VITALS: RESP 16
[2024-05-15 10:00] VITALS: BP 166/87; PULSE 88; RESP 18; TEMP 98.8; O2SAT 95
[2024-05-15 11:25] LABS: C DIFF ANTIGEN NEGATIVE (NEGATIVE); C DIFF SPECIMEN=DIARRHEA? ACCEPTABLE; C DIFFICILE TOXINS A&B NEGATIVE (Neg)
[2024-05-15 18:00] VITALS: BP 139/83; PULSE 88; RESP 18; TEMP 97.4; O2SAT 99
[2024-05-15 20:00] VITALS: RESP 18; O2SAT 99
[2024-05-15 22:00] VITALS: BP 160/97; PULSE 83; RESP 14; TEMP 97.6; O2SAT 95
[2024-05-16 06:00] VITALS: BP 154/94; PULSE 90; RESP 14; TEMP 97.8; O2SAT 96
[2024-05-16 06:59] LABS: BASOPHILS % (AUTO) 0.2 % (0-1); EOSINOPHILS % (AUTO) 0.2 % (0-6); HEMATOCRIT 38.9 % (42.0-52.0); HEMOGLOBIN 13.6 g/dl (14.0-17.9); LYMPHOCYTES # (AUTO) 5.2 X10'3 (1.1-4.8); LYMPHOCYTES % (AUTO) 24.5 % (21-51); MEAN CORPUSCULAR HEMOGLOBIN 30.6 PG (27.0-31.0); MEAN CORPUSCULAR HGB CONC 34.9 g/dL (33.0-36.5); MEAN CORPUSCULAR VOLUME 87.8 FL (78-98); MEAN PLATELET VOLUME 7.8 FL (7.4-10.4); MONOCYTES # (AUTO) 1.5 X10'3 (0-0.9); NEUTROPHILS # (AUTO) 14.3 X10'3 (1.8-7.7); NEUTROPHILS % (AUTO) 68.1 % (42-75); PLATELET COUNT 503 X10'3 (140-440); RED BLOOD COUNT 4.43 X10'6 (4.70-6.10); RED CELL DISTRIBUTION WIDTH 13.3 % (11.5-14.5); WHITE BLOOD COUNT 21.1 X10'3 (4.5-11.0)
[2024-05-16 07:27] LABS: ALANINE AMINOTRANSFERASE 19 U/L (12-78); ALBUMIN/GLOBULIN RATIO 0.8 (1.1-1.5); ALKALINE PHOSPHATASE 72 IU/L (46-116); ANION GAP 9 (8-16); ASPARTATE AMINO TRANSFERASE 20 U/L (10-37); BILIRUBIN,TOTAL 0.6 MG/DL (0.1-1.0); BLOOD UREA NITROGEN 5 MG/DL (7-18); CHLORIDE 95 MMOL/L (99-107); CREATININE 0.71 MG/DL (0.60-1.10); GLUCOSE 108 MG/DL (70-104); MAGNESIUM 1.7 MG/DL (1.5-2.4); SODIUM 132 MMOL/L (135-145); TOTAL CARBON DIOXIDE 27.6 MMOL/L (24-32); eCRCL 133 ML/MIN; eGFR > 90 ML/MIN
[2024-05-16 08:00] VITALS: RESP 14; O2SAT 96
[2024-05-16] MEDS: potassium Cl 20 mEq SR tablet PO PRN (09:49)
[2024-05-16 11:00] VITALS: BP 140/89; PULSE 90; RESP 16; TEMP 97.9; O2SAT 96
[2024-05-16 18:00] VITALS: BP 164/96; PULSE 94; RESP 16; TEMP 97; O2SAT 98
[2024-05-16 20:00] VITALS: RESP 16; O2SAT 98
[2024-05-16 22:00] VITALS: BP 166/98; PULSE 93; RESP 23; TEMP 97.1; O2SAT 94
[2024-05-16] MEDS ORDERED: magnesium sulf-water 4G/100mL 100 ML IV PRN (22:25)
[2024-05-16] MEDS ORDERED: magnesium Cl slow-release 64mg tablet PO PRN (22:25)
[2024-05-16] MEDS ORDERED: magnesium sulf-water 2g/50mL 50 ML IV PRN (22:25)
[2024-05-16] MEDS ORDERED: potassium Cl 20 mEq SR tablet PO PRN ×2 (22:25)
[2024-05-17] MEDS: potassium Cl 40MEQ/1/2NS 520ml 520 ML IV PRN (00:55)
[2024-05-17 06:00] VITALS: BP 157/92; PULSE 68; RESP 18; TEMP 96.4; O2SAT 96
[2024-05-17 06:10] LABS: BASOPHILS # (AUTO) 0.1 X10'3 (0-0.2); BASOPHILS % (AUTO) 0.2 % (0-1); EOSINOPHILS # (AUTO) 0.2 X10'3 (0-0.9); EOSINOPHILS % (AUTO) 0.7 % (0-6); HEMATOCRIT 41.7 % (42.0-52.0); HEMOGLOBIN 14.6 g/dl (14.0-17.9); LYMPHOCYTES # (AUTO) 5.5 X10'3 (1.1-4.8); LYMPHOCYTES % (AUTO) 23.1 % (21-51); MEAN CORPUSCULAR HEMOGLOBIN 30.8 PG (27.0-31.0); MEAN CORPUSCULAR HGB CONC 34.9 g/dL (33.0-36.5); MEAN CORPUSCULAR VOLUME 88.3 FL (78-98); MEAN PLATELET VOLUME 7.6 FL (7.4-10.4); MONOCYTES # (AUTO) 1.5 X10'3 (0-0.9); MONOCYTES % (AUTO) 6.4 % (2-12); NEUTROPHILS # (AUTO) 16.5 X10'3 (1.8-7.7); NEUTROPHILS % (AUTO) 69.6 % (42-75); PLATELET COUNT 607 X10'3 (140-440); RED BLOOD COUNT 4.72 X10'6 (4.70-6.10); RED CELL DISTRIBUTION WIDTH 12.9 % (11.5-14.5); WHITE BLOOD COUNT 23.7 X10'3 (4.5-11.0)
[2024-05-17 06:27] LABS: ALANINE AMINOTRANSFERASE 20 U/L (12-78); ALBUMIN 3.2 G/DL (3.4-5.0); ALBUMIN/GLOBULIN RATIO 0.8 (1.1-1.5); ALKALINE PHOSPHATASE 73 IU/L (46-116); ANION GAP 5 (8-16); ASPARTATE AMINO TRANSFERASE 18 U/L (10-37); BILIRUBIN,TOTAL 0.8 MG/DL (0.1-1.0); BLOOD UREA NITROGEN 5 MG/DL (7-18); CALCIUM 8.1 MG/DL (8.5-10.1); CHLORIDE 92 MMOL/L (99-107); CREATININE 0.71 MG/DL (0.60-1.10); GLUCOSE 119 MG/DL (70-104); MAGNESIUM 1.7 MG/DL (1.5-2.4); POTASSIUM 5.8 MMOL/L (3.5-5.1); SODIUM 125 MMOL/L (135-145); TOTAL CARBON DIOXIDE 28.4 MMOL/L (24-32); TOTAL PROTEIN 7.4 G/DL (6.4-8.2); eCRCL 133 ML/MIN; eGFR > 90 ML/MIN
[2024-05-17] MEDS: K and/or MAG REPLACEMENT MC SCH (08:00)
[2024-05-17 08:13] LABS: D-DIMER 0.99 MG/L FEU (0-0.50)
[2024-05-17 10:00] VITALS: BP 145/89; PULSE 94; RESP 16; TEMP 97.7; O2SAT 93
[2024-05-17] MEDS: diatr meglu/diatrizoate 30ml oral sol.-(3 dose) bottle PO SCH (12:00)
[2024-05-17] MEDS ORDERED: iohexol 300mg/ml 100ml inj. ONE (12:08)
[2024-05-17 17:33] LABS: ALBUMIN 3.1 G/DL (3.4-5.0); ANION GAP 12 (8-16); BLOOD UREA NITROGEN 5 MG/DL (7-18); BUN/CREATININE RATIO 6.7 (10.0-20.0); CHLORIDE 90 MMOL/L (99-107); CREATININE 0.75 MG/DL (0.60-1.10); GLUCOSE 146 MG/DL (70-104); POTASSIUM 3.5 MMOL/L (3.5-5.1); SODIUM 125 MMOL/L (135-145); eCRCL 126 ML/MIN; eGFR > 90 ML/MIN
[2024-05-17 18:00] VITALS: BP 177/109; PULSE 90; RESP 20; TEMP 98.1; O2SAT 99
[2024-05-17] MEDS: losartan 50mg tablet PO SCH (19:52)
[2024-05-17 20:00] VITALS: RESP 20; O2SAT 99
[2024-05-17 22:00] VITALS: BP 153/94; PULSE 124; RESP 19; TEMP 99.2; O2SAT 96
[2024-05-18 04:41] LABS: BASOPHILS # (AUTO) 0.1 X10'3 (0-0.2); BASOPHILS % (AUTO) 0.5 % (0-1); EOSINOPHILS # (AUTO) 0.2 X10'3 (0-0.9); EOSINOPHILS % (AUTO) 0.9 % (0-6); HEMATOCRIT 42.2 % (42.0-52.0); HEMOGLOBIN 14.4 g/dl (14.0-17.9); LYMPHOCYTES # (AUTO) 4.4 X10'3 (1.1-4.8); LYMPHOCYTES % (AUTO) 24.2 % (21-51); MEAN CORPUSCULAR HEMOGLOBIN 30.3 PG (27.0-31.0); MEAN CORPUSCULAR HGB CONC 34.1 g/dL (33.0-36.5); MEAN CORPUSCULAR VOLUME 88.9 FL (78-98); MEAN PLATELET VOLUME 7.3 FL (7.4-10.4); MONOCYTES % (AUTO) 5.7 % (2-12); NEUTROPHILS # (AUTO) 12.4 X10'3 (1.8-7.7); NEUTROPHILS % (AUTO) 68.7 % (42-75); PLATELET COUNT 440 X10'3 (140-440); RED BLOOD COUNT 4.75 X10'6 (4.70-6.10); RED CELL DISTRIBUTION WIDTH 13.6 % (11.5-14.5); WHITE BLOOD COUNT 18.1 X10'3 (4.5-11.0)
[2024-05-18 05:02] LABS: ALANINE AMINOTRANSFERASE 22 U/L (12-78); ALBUMIN 3.2 G/DL (3.4-5.0); ALBUMIN/GLOBULIN RATIO 0.8 (1.1-1.5); ALKALINE PHOSPHATASE 72 IU/L (46-116); ANION GAP 7 (8-16); ASPARTATE AMINO TRANSFERASE 16 U/L (10-37); BILIRUBIN,TOTAL 0.6 MG/DL (0.1-1.0); BLOOD UREA NITROGEN 6 MG/DL (7-18); BUN/CREATININE RATIO 7.4 (10.0-20.0); CALCIUM 8.9 MG/DL (8.5-10.1); CHLORIDE 96 MMOL/L (99-107); CREATININE 0.81 MG/DL (0.60-1.10); GLUCOSE 116 MG/DL (70-104); POTASSIUM 3.5 MMOL/L (3.5-5.1); SODIUM 132 MMOL/L (135-145); TOTAL CARBON DIOXIDE 28.6 MMOL/L (24-32); TOTAL PROTEIN 7.4 G/DL (6.4-8.2); eCRCL 116 ML/MIN; eGFR > 90 ML/MIN
[2024-05-18 06:00] VITALS: BP 146/97; PULSE 84; RESP 21; TEMP 98.8; O2SAT 97
[2024-05-18 08:12] VITALS: RESP 21; O2SAT 97
[2024-05-18 10:00] VITALS: BP 136/85; PULSE 91; RESP 20; TEMP 99.4; O2SAT 98
[2024-05-18] MEDS ORDERED: LACT1CAP26 PO (13:33)
[2024-05-18] MEDS ORDERED: LEVO-65 PO (13:33)
[2024-05-18] MEDS ORDERED: METR-159 PO (13:33)
[2024-05-18] MEDS ORDERED: METO10TA3 PO (13:44)
== END 2024-05-18 15:24 | disposition home or self-care (01) | DRG 872 ==
LOC: ER 13:38 → ED HOLD 18:14 → SUR 3N 19:25
PROVIDERS: ADMIT Internal Medicine; ATTEND Internal Medicine
PROC: BW211ZZ Computerized Tomography (CT Scan) of Abdomen and Pelvis using Low Osmolar Contrast (ICD-10-PCS; principal; 2024-05-17)
DX: A41.9 Sepsis, unspecified organism (principal); I10 Essential (primary) hypertension; K52.89 Other specified noninfective gastroenteritis and colitis; Z20.822 Contact with and (suspected) exposure to COVID-19; G47.30 Sleep apnea, unspecified; E87.6 Hypokalemia; E83.42 Hypomagnesemia; E11.65 Type 2 diabetes mellitus with hyperglycemia; E66.811 Obesity, class 1; D64.9 Anemia, unspecified; K80.20 Calculus of gallbladder without cholecystitis without obstruction; A08.8 Other specified intestinal infections; Z68.31 Body mass index [BMI] 31.0-31.9, adult; Z79.899 Other long term (current) drug therapy
CPT/HCPCS: 36415; 71045; 74177; 80048; 80053; 80061; 80305; 81001; 82009; 83036; 83605; 83690; 83735; 84132; 84145; 85025; 85379; 85610; 85651; 85730; 87040; 87045; 87046; 87081; 87324; 87449; 87811; 89055; 93005; 96374; 99285; G0378; J0780; J1630; J1644; J2405; J2543; J2765; J3480; J7030; Q9967

== ENCOUNTER 2024-06-04 09:49 | Emergency (ER) | payer OTHER, MEDICARE, MEDICAID ==
[~2024-06-04] VITALS: Ht 180.3 cm; Wt 102.3 kg
[~2024-06-04 09:49] MED LIST changes: +ACET-890 PO; +CHOL10CA2 PO; -DULO20CA50 PO; -GABA-535 PO; +IBUP-1984 PO; +LACT1CAP26 PO; +METO10TA3 PO; -ONDA-245 PO
[2024-06-04 11:23] VITALS: TEMP 97
[2024-06-04 12:38] LABS: BASOPHILS # (AUTO) 0.1 X10'3 (0-0.2); BASOPHILS % (AUTO) 1.1 % (0-1); EOSINOPHILS # (AUTO) 0.1 X10'3 (0-0.9); EOSINOPHILS % (AUTO) 1.3 % (0-6); HEMATOCRIT 37.3 % (42.0-52.0); HEMOGLOBIN 12.8 g/dl (14.0-17.9); LYMPHOCYTES # (AUTO) 2.2 X10'3 (1.1-4.8); LYMPHOCYTES % (AUTO) 27.1 % (21-51); MEAN CORPUSCULAR HEMOGLOBIN 30.9 PG (27.0-31.0); MEAN CORPUSCULAR HGB CONC 34.3 g/dL (33.0-36.5); MEAN PLATELET VOLUME 7.5 FL (7.4-10.4); MONOCYTES # (AUTO) 0.7 X10'3 (0-0.9); MONOCYTES % (AUTO) 8.2 % (2-12); NEUTROPHILS % (AUTO) 62.3 % (42-75); PLATELET COUNT 480 X10'3 (140-440); RED BLOOD COUNT 4.15 X10'6 (4.70-6.10)
[2024-06-04 12:52] LABS: ALANINE AMINOTRANSFERASE 27 U/L (12-78); ALBUMIN 3.7 G/DL (3.4-5.0); ALBUMIN/GLOBULIN RATIO 0.8 (1.1-1.5); ALKALINE PHOSPHATASE 68 IU/L (46-116); ANION GAP 9 (8-16); ASPARTATE AMINO TRANSFERASE 23 U/L (10-37); BILIRUBIN,TOTAL 0.7 MG/DL (0.1-1.0); BLOOD UREA NITROGEN 5 MG/DL (7-18); BUN/CREATININE RATIO 9.1 (10.0-20.0); CALCIUM 9.3 MG/DL (8.5-10.1); CHLORIDE 102 MMOL/L (99-107); CREATININE 0.55 MG/DL (0.60-1.10); GLUCOSE 110 MG/DL (70-104); LIPASE 46 U/L (16-77); POTASSIUM 3.7 MMOL/L (3.5-5.1); SODIUM 139 MMOL/L (135-145); TOTAL CARBON DIOXIDE 28.1 MMOL/L (24-32); TOTAL PROTEIN 8.1 G/DL (6.4-8.2); eCRCL 171 ML/MIN; eGFR > 90 ML/MIN
[2024-06-04 14:27] LABS: BILIRUBIN,URINE NEGATIVE (Neg); CLARITY,URINE CLEAR (Clear); COLOR,URINE YELLOW (Yellow); GLUCOSE, URINE NEGATIVE (Neg); KETONES,URINE NEGATIVE (Neg); LEUKOCYTE ESTERASE ,URINE NEGATIVE (Neg); NITRITES, URINE NEGATIVE (Neg); OCCULT BLOOD,URINE NEGATIVE (Neg); PROTEIN,URINE NEGATIVE (Neg); UROBILINOGEN,URINE 0.2 E.U/dL (0.2-1.0)
[2024-06-04 14:30] LABS: UA COLLECTION TYPE NON-SPECIFIED
[2024-06-04 16:00] VITALS: BP 159/98; PULSE 73; RESP 16; O2SAT 97
[2024-06-04] MEDS ORDERED: DICY20TA17 PO (16:11)
[2024-06-04] MEDS ORDERED: PRED20TA PO (16:11)
== END 2024-06-04 16:21 | disposition home or self-care (01) ==
LOC: ER 09:50
DX: K65.4 Sclerosing mesenteritis (principal); I10 Essential (primary) hypertension; G47.30 Sleep apnea, unspecified; E11.9 Type 2 diabetes mellitus without complications; F12.90 Cannabis use, unspecified, uncomplicated; Z87.891 Personal history of nicotine dependence
CPT/HCPCS: 36415; 74176; 80053; 81003; 83690; 85025; 99284